=== PATIENT | female | born 1970 | race Two or more races ===

== ENCOUNTER 2024-11-03 06:39 | Day surgery (SDC) | payer OTHER, SELFPAY ==
[2024-11-01 16:23] VITALS: BMI 28.8
--- NOTE | 2024-11-02 09:08 | EKG_ITS ---
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
[2024-11-02 15:39] LABS: Basophils % (Auto) 0 % (0-2.5); Eosinophils # (Auto) 0.4 Thou/mm3 (0.0-0.5); Eosinophils % (Auto) 4 % (0-10); Hemoglobin 13.7 g/dL (12.0-16.0); Immature Granulocytes % (Auto) 0 % (0-0); Immature Granulocytes Auto 0.03 Thou/mm3 (0.00-0.00); Lymphocytes # (Auto) 3.3 Thou/mm3 (1.0-4.8); Lymphocytes % (Auto) 31 % (10-50); Mean Corpuscular HGB Conc 33.4 g/dl (31.0-37.0); Mean Corpuscular Hemoglobin 28.7 pg (25.0-35.0); Mean Corpuscular Volume 86 fL (80-100); Monocytes # (Auto) 0.8 Thou/mm3 (0.0-0.8); Monocytes % (Auto) 8 % (0-12); Neutrophils # (Auto) 5.9 Thou/mm3 (1.8-7.7); Neutrophils % (Auto) 57 % (37-80); Nucleated Red Blood Cell % 0 /100 WBC (0); Platelet Count 307 Thou/mm3 (140-440); RDW Standard Deviation 40.5 fL (36.4-46.3); Red Blood Count 4.78 Miln/mm3 (4.00-5.20); White Blood Count 10.4 Thou/mm3 (3.6-11.0)
[2024-11-02 15:46] LABS: Partial Thromboplastin Time 28.3 Seconds (22.0-36.0); Prothrombin Time 10.7 Seconds (9.0-12.2)
[2024-11-02 15:52] LABS: Anion Gap 7 (7-16); BUN/Creatinine Ratio 18 Ratio (12-20); Blood Urea Nitrogen 23 mg/dL (9-23); Calcium 10.1 mg/dL (8.3-10.6); Carbon Dioxide 29.9 mMol/L (20.0-31.0); Chloride 102 mMol/L (98-107); Creatinine (Component) 1.3 mg/dL (0.6-1.3); Estimated Creatinine Clearance 55.6 mL/min (>60); Glucose 199 mg/dL (74-106); Osmolality,Calculated 287 (275-295); Potassium 3.7 mMol/L (3.4-5.1); Sodium 139 mMol/L (136-145); eGFR 49 See Note
[2024-11-03] VITALS (11 sets, daily range): BP systolic 109–129; BP diastolic 66–80; PULSE 52–67; RESP 12–21; TEMP 36.5–36.6; O2SAT 92–95
[2024-11-03] MEDS: SODIUM CHLORIDE 0.9% 500 ML 300 ML 100 ML IV (08:35)
--- NOTE | 2024-11-03 09:10 | ESOP_ITS ---
RE: DERIC CHO : 1970 DATE OF OPERATION: 11/03/2024 PROCEDURE PERFORMED: 1. Diagnostic left heart cardiac catheterization, selective coronary angiogram, left ventricular angiogram, CPT 62454. 2. Ultrasound-guided access, right radial artery. 3. Conscious sedation 30 minute duration. DIAGNOSES: Coronary artery disease, abnormal stress test, angina. HISTORY AND INDICATIONS: The patient is a 54-year-old lady with history of hypertension, hypercholesterolemia, diabetes mellitus, strong family history of CAD. Mother having heart attack at early age, has had recurrent shortness of breath, chest tightness, palpitations. Cardiac workup showed evidence of inferior wall ischemia, reversible suspicious for significant CAD, hence coronary angiogram was recommended assess the patient is a candidate for intervention and revascularization. PROCEDURE IN DETAIL: The patient was brought to cardiac catheterization laboratory where she was given 2 mg of Versed and 75 mcg of fentanyl for sedation. Right radial approach was taken. Right radial artery was cannulated via micropuncture technique. A 6-Tuvaluan Glidesheath was introduced. Selective right and left coronary angiogram performed via TIG-4, 5-Tuvaluan diagnostic catheter and left heart catheterization and left ventricular angiogram performed by the same catheter. The patient tolerated the procedure well with no complications. TR band was applied. Hemostasis secured. Radial cocktail was also given consisting of nitroglycerin plus heparin 3000 units as well as verapamil 2.5 mg. Cardiac catheterization showed following findings. Hemodynamics: Left ventricular pressure 108/2, EDP 15, aortic pressure 117/70. No gradient across the aortic valve. Left ventricular angiogram showed normal left ventricular wall motion, ejection fraction 70%. Coronary angiogram showed following findings. Right coronary artery small and nondominant, gives off right ventricular branches . Left coronary system. Left main coronary artery are normal. Short and bifurcation to LAD, circumflex artery, very sharp left main. Left anterior descending artery showed mild plaque in the proximal segment, 20% narrowing, mid left anterior descending artery showed mild plaque again 20% narrowing. Hemodynamically significant obstructive CAD. Left circumflex artery is large and dominant, gives off obtuse marginal branch, posterolateral branches and posterior descending artery. Left circumflex artery and all the branches appeared normal. SUMMARY OF FINDINGS: 1. Hemodynamically insignificant nonobstructive coronary artery disease, evidence of mild to moderate plaque involving proximal and mid left anterior descending artery. 2. Dominant left circumflex artery with no significant stenosis. 3. Nondominant right coronary artery. 4. Normal left ventricular function. RECOMMENDATIONS: The patient was reassured about the absence of significant obstructive coronary artery disease. Recommended to continue medical management. Prognosis is excellent. DT: 08:28:44 TT: 09:08:00 Ref: [id number] - TID: [id number]
== END 2024-11-03 11:21 | disposition home or self-care (01) ==
PROVIDERS: PCP Physician Assistant Medical; Referring Provider Internal Medicine Cardiovascular Disease; Visit Provider Internal Medicine Cardiovascular Disease
PROC: (CPT 93458; principal; 2024-11-03 07:30)
DX: I25.119 Atherosclerotic heart disease of native coronary artery with unspecified angina pectoris (principal); E11.9 Type 2 diabetes mellitus without complications; E78.00 Pure hypercholesterolemia, unspecified; I10 Essential (primary) hypertension; Z82.49 Family history of ischemic heart disease and other diseases of the circulatory system; Z01.810 Encounter for preprocedural cardiovascular examination; Z86.69 Personal history of other diseases of the nervous system and sense organs
CPT/HCPCS: 93458; 36415; 80048; 85025; 85610; 85730; 93005; 99152; A4649; C1769; C1887; C1894; J0171; J0461; J1643; J2250; J2310; J2371; J3010; J3490; J7040; Q9967; J2305

== ENCOUNTER 2024-11-05 00:32 | Emergency (ER) | payer OTHER, SELFPAY ==
[2024-11-05 00:33] VITALS: BMI 29.1
--- NOTE | 2024-11-05 00:34 | EKG_ITS ---
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
[2024-11-05 01:21] VITALS: BP 135/84; PULSE 58; RESP 18; TEMP 36.8; O2SAT 95
--- NOTE | 2024-11-05 01:52 | PD.EDEXREM ---
ED Extremity Problem RME/HPI General Chief complaint: Extremity Problem,Nontraumatic Stated complaint: RIGHT SHOULDER PAIN S/P ANGIOGRAM YESTERDAY Time Seen by Provider: 11/05/24 01:44 Arrival date/time: 11/05/24 00:32 54F with history of HTN and DM presents to ED with R shoulder pain w/o fall/trauma. Patient denies CP and SOB. Patient did have a R-sided heart cath today by Dr. Arvizu. Patient states she often gets frozen shoulder and that this feels the same. Limitations: no limitations Related Data Home Medications ?Medication ?Instructions ?Recorded ?Confirmed Propranolol Hcl * (INDERAL *) 80 mg PO QDAY HEART #0 tabs 05/06/14 11/03/24 loratadine 10 mg tablet (Claritin) 20 mg PO QDAY PRN ALLERGY #0 tabs 07/26/14 11/03/24 aspirin 81 mg tablet,delayed 81 mg PO QDAY 10/22/19 11/03/24 release empagliflozin 25 mg tablet 25 mg PO QDAY 11/03/24 11/03/24 (Jardiance) hydrochlorothiazide 25 mg tablet 25 mg PO QAM 11/03/24 11/03/24 lisinopril 2.5 mg tablet 2.5 mg PO QDAY 11/03/24 11/03/24 rosuvastatin 5 mg tablet (Crestor) 5 mg PO QDAY 11/03/24 11/03/24 sitagliptin phosphate 50 1 tab PO BID 11/03/24 11/03/24 mg-metformin 1,000 mg tablet (Janumet) Held on 11/03/24. Instructions: Resume on 11/05/24. continue Friday11/05/24 Previous Rx's ?Medication ?Instructions ?Recorded ibuprofen 600 mg tablet 600 mg PO QID PRN pain #30 tabs 11/21/18 Allergies Allergy/AdvReac Type Severity Reaction Status Date / Time No Known Allergies Allergy Verified 11/05/24 00:33 Review of Systems Review of Systems Systems Reviewed: All systems reviewed, normal except as documented Constitutional Constitutional: Reports system reviewed and no additional complaints, except as documented, Denies fever(s) and Denies headache(s) ENT Ears, Nose, Mouth, and Throat: Denies disequilibrium and Denies headache(s) Cardiovascular Cardiovascular: Reports system reviewed and no additional complaints, except as documented, Denies chest pain and Denies dyspnea Respiratory Respiratory: Reports system reviewed and no additional complaints, except as documented, Denies cough and Denies dyspnea Gastrointestinal Gastrointestinal: Reports system reviewed and no additional complaints, except as documented, Denies abdominal pain, Denies nausea and Denies vomiting Musculoskeletal Musculoskeletal: Reports as per HPI and Reports arthralgias Neurologic Neurologic: Reports system reviewed and no additional complaints, except as documented, Denies confusion, Denies disequilibrium and Denies headache(s) Psychiatric Psychiatric: Denies confusion Past Medical History Past Medical History 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); Negative Neurological Disorders or Seizures CARDIAC: Positive Cardiac Disorders (palpitations), Hypercholesterolemia and Hypertension; Negative Congestive Heart Failure RESPIRATORY: Negative Chronic Obstructive Pulmonary Disease (COPD) GASTROINTESTINAL: Positive Gastrointestinal Disorders (constipation, x3 colonoscopy) and Hemorrhoids GENITOURINARY: Positive Kidney Stones; Negative Genitourinary Disorders or Renal Disease REPRODUCTIVE: Positive Previous Pregnancies MUSCULOSKELETAL: Positive Arthritis; Negative Musculoskeletal Disorders ENDOCRINE: Positive Endocrine Disorders and Diabetes Mellitus Type 2; Negative Diabetes Mellitus Type 1 HEMATOLOGIC: Negative Blood Disorders PSYCHO/SOCIAL: Positive Anxiety OTHER HISTORY: Positive Blood Transfusions; Negative Shingles, Falls, Blood Transfusion Reaction, Anesthesia Reactions or Cancer Family History FAMILY HISTORY: Positive Family Cardiac Disorders Surgical History SURGICAL: Positive Abdominal Surgery, Joint Replacement (ankle sx), Hysterectomy and Section (x3); Negative Cardiac Surgery or Nephrectomy Social History SMOKING STATUS: Never smoker SUBSTANCE USE: does not use ED Exam General Limitations: Present no limitations General appearance: Present alert and in no apparent distress Head Head exam: Present atraumatic Eye Eye exam: Present normal appearance, PERRL and EOMI ENT ENT exam: Present normal exam, normal oropharynx and mucous membranes moist Neck Neck exam: Present normal inspection, full ROM and trachea midline Chest Chest inspection: Present normal inspection and symmetric chest wall rise Respiratory Respiratory exam: Present normal lung sounds bilaterally Cardiovascular Cardiovascular exam: Present regular rate, normal rhythm and normal heart sounds Abdominal Exam Abdominal exam: Present soft and normal bowel sounds Extremities Exam Extremities exam: Present normal inspection and full ROM Back Exam Back exam: Present normal inspection and full ROM Neurological Exam Neurological exam: Present alert, oriented X3 and CN II-XII intact Psychiatric Psychiatric exam: Present normal affect and normal mood Skin Skin exam: Present warm, dry, intact and normal color Course Quality Measures none Orders Category Date Time Status EKG (ED ONLY) *Do not use* NOW Care 11/05/24 00:34 Completed EKG (ED Only) Stat Exams 11/05/24 00:34 Draft CBC Stat Lab 11/05/24 02:17 Completed CMP [Comprehensive Metabolic Panel] Stat Lab 11/05/24 02:17 Completed Troponin I Stat Lab 11/05/24 02:17 Completed HYDROcodone*/APAP 5/325 [Russell 5/325] Med 11/05/24 01:45 Discontinued 1 tab PO X1 ONE Vital Signs Vital signs: Vital Signs Temperature 98.3 F 11/05/24 01:21 Pulse Rate 58 L 11/05/24 01:21 Respiratory Rate 18 11/05/24 01:21 Blood Pressure 135/84 H 11/05/24 01:21 Pulse Oximetry (%) 95 11/05/24 01:21 Oxygen Delivery Method Room Air 11/05/24 01:21 O2 at 95% on RA and WNLs Extremity Problem MDM Narrative MDM Narrative:: 54F with history of HTN and DM presents to ED with R shoulder pain w/o fall/trauma. Patient denies CP and SOB. Patient did have a R-sided heart cath today by Dr. Arvizu. Patient states she often gets frozen shoulder and that this feels the same. Physical exam reveals no R shoulder tenderness. No gross RUE swelling. Pain is with ROM, which is limited. Clear lungs. RRR. Patient is afebrile, calm, and alert. EKG is sinus manuel at 58. Trop normal. Other labs unremarkable. Pain improved with meds. Patient data External records reviewed:: [facility] previous records Clinical information provided by:: patient Social determinants that could affect healthcare access:: none Patient has the following chronic illnesses:: none How is presenting disease/condition affected by chronic disease/condition?: no chronic disease Evaluation data The following diagnostics were reviewed and interpreted by me:: lab results and EKG tracing(s) Lab and/or radiology exams considered but not ordered:: ordered Interpretation Summary: above Medications / Prescriptions Medications or Prescriptions considered but not ordered:: ordered Medication administrations:: Medication Administration History Discontinued Medications Hydrocodone Bitart/Acetaminophen (Hydrocodone/Apap 5/325 Tablet) 1 tab PO X1 ONE Stop: 11/05/24 01:46 Last Admin: 11/05/24 02:19 Dose: 1 tab Documented By: SE above Consultations Consultation(s) initiated? (list below): No Diagnosis Extremity Problem Differential Diagnosis: herpes zoster, gout, cellulitis, superficial thrombophlebitis, deep venous thrombosis of upper extremity, lower extremity edema, deep vein thrombosis of lower extremity and other (DVT, adhesive capsulitis, ACS) Most likely diagnosis given after review of the tests above:: adhesive capsulitis Admission Indicated Admission indicated?: not indicated Admission Request Was there a request for admission?: No Disposition Plan Disposition Plan: Discharge Discharge Attestation Discharge Attestation: The patient and all family members were given an opportunity to ask questions and understood the discharge instructions. Discharge instructions specifically effects, indications for sooner follow up or return to the emergency department, and the expected course of current diagnosis. Patient condition: Stable Discharge Plan Plan Patient Disposition: HOME (Self Care) Disposition Comment: Stable Prescriptions/Referrals Prescriptions/Med Rec: No Action Propranolol Hcl * (INDERAL *) 80 MG tablet 80 mg PO QDAY Qty: 0 loratadine [Claritin] 10 MG tablet 20 mg PO QDAY PRN (Reason: ALLERGY) Qty: 0 ibuprofen 600 mg tablet 600 mg PO QID PRN (Reason: pain) Qty: 30 0RF aspirin 81 mg Tablet,Delayed Release (Dr/Ec) 81 mg PO QDAY rosuvastatin [Crestor] 5 mg tablet 5 mg PO QDAY Janumet 50-1,000 mg tablet 1 tab PO BID hydrochlorothiazide 25 mg tablet 25 mg PO QAM lisinopril 2.5 mg tablet 2.5 mg PO QDAY Jardiance 25 mg tablet 25 mg PO QDAY Referrals: Angelic Kim PA-C [Primary Care Provider] - In 1 week Problem List Clinical Impression: Adhesive capsulitis Patient/Caregiver Discharge Instructions Education Materials: ED Capsulitis Adhesive Shoulder Additional Instructions: Please follow-up with PCP within 24-48 hours and return immediately if symptoms worsen. If problem persists, recommend outpatient PT and/or MRI follow-up. In the meantime, rest, use ice/heat, and/or compression. Print Language: Maori Stand Alone Forms: Patient Portal Info Letter PA/GUILLOTINE TRIMMER Supervising Physician ROCÍO/NEYMAR Supervising Physician: Dr. Erickson
[2024-11-05] MEDS: HYDROcodone/APAP 5/325 TABLET 1 TAB PO (02:19)
[2024-11-05 02:29] LABS: Basophils # (Auto) 0.1 Thou/mm3 (0.0-0.2); Basophils % (Auto) 1 % (0-2.5); Eosinophils # (Auto) 0.5 Thou/mm3 (0.0-0.5); Eosinophils % (Auto) 4 % (0-10); Hematocrit 40.6 % (36.0-46.0); Hemoglobin 13.6 g/dL (12.0-16.0); Immature Granulocytes % (Auto) 0 % (0-0); Immature Granulocytes Auto 0.05 Thou/mm3 (0.00-0.00); Lymphocytes # (Auto) 3.2 Thou/mm3 (1.0-4.8); Lymphocytes % (Auto) 26 % (10-50); Mean Corpuscular HGB Conc 33.5 g/dl (31.0-37.0); Mean Corpuscular Hemoglobin 28.8 pg (25.0-35.0); Mean Corpuscular Volume 86 fL (80-100); Monocytes # (Auto) 1.2 Thou/mm3 (0.0-0.8); Monocytes % (Auto) 10 % (0-12); Neutrophils # (Auto) 7.4 Thou/mm3 (1.8-7.7); Neutrophils % (Auto) 60 % (37-80); Nucleated Red Blood Cell % 0 /100 WBC (0); Platelet Count 269 Thou/mm3 (140-440); RDW Standard Deviation 40.2 fL (36.4-46.3); Red Blood Count 4.73 Miln/mm3 (4.00-5.20); White Blood Count 12.3 Thou/mm3 (3.6-11.0)
[2024-11-05 02:53] LABS: Alanine Aminotransferase 10 U/L (10-49); Albumin, Serum 4.4 gm/dL (3.5-5.0); Albumin/Globulin Ratio 1.4 (1.2-2.2); Alkaline Phosphatase 76 U/L (46-116); Anion Gap 10 (7-16); Aspartate Amino Transferase 10 U/L (0-34); BUN/Creatinine Ratio 18 Ratio (12-20); Bilirubin,Total 0.3 mg/dL (0.3-1.2); Blood Urea Nitrogen 18 mg/dL (9-23); Calcium 9.4 mg/dL (8.3-10.6); Calcium (Corrected) 9.4 mg/dL (8.5-10.1); Carbon Dioxide 28.2 mMol/L (20.0-31.0); Chloride 102 mMol/L (98-107); Estimated Creatinine Clearance 72.6 mL/min (>60); Globulin 3.2 gm/dL (2.3-3.5); Glucose 202 mg/dL (74-106); Osmolality,Calculated 287 (275-295); Potassium 3.5 mMol/L (3.4-5.1); Sodium 140 mMol/L (136-145); Total Protein 7.6 gm/dL (5.7-8.2); Troponin I < 0.020 ng/mL (0.0-0.045); eGFR > 60 See Note
== END 2024-11-05 03:29 | disposition home or self-care (01) ==
PROVIDERS: Physician Assistant; Emergency Provider Emergency Medicine; PCP Physician Assistant Medical
DX: M75.01 Adhesive capsulitis of right shoulder (principal); I10 Essential (primary) hypertension; E78.00 Pure hypercholesterolemia, unspecified
CPT/HCPCS: 36415; 80053; 84484; 85025; 93005; 99283; A9270

== ENCOUNTER → 2025-02-09 | Outpatient (CLI) | payer OTHER, SELFPAY ==
--- NOTE | 2025-02-09 13:20 | XR_ITS ---
Examination: Bone densitometry Date and time of exam:February 09, 2025 1358 hours INDICATIONS: Hysterectomy age 37 vitamin D 9 months, diabetic Technique: Lumbar spine and hip total bone mineralization values of an calculated. Peak reference and age match control results have been displayed. Findings: Lumbar spine total bone mineralization is1.242 gm/cm2. This is 1.8 standard deviations above peak reference. This is 2.7 standard deviations above age-matched controls. Hip total bone mineralization is 1.392 gm/cm2 This is 3.2 standard deviations above peak reference. This is 3.9 standard deviations above age-matched controls Impression: There is normal mineralization based on lumbar spine measurements. There is normal mineralization based on hip measurements
== END | disposition home or self-care (01) ==
LOC: CDIM 13:33
PROVIDERS: PCP Physician Assistant Medical; Referring Provider Physician Assistant Medical; Visit Provider Physician Assistant Medical
DX: M85.88 Other specified disorders of bone density and structure, other site (principal)
CPT/HCPCS: 77080

== ENCOUNTER 2025-05-18 02:35 | Inpatient (IN) | payer OTHER, SELFPAY ==
[2025-05-18] VITALS (10 sets, daily range): BP systolic 121–155; BP diastolic 71–96; PULSE 59–99; RESP 14–92; TEMP 36.5–37; O2SAT 92–97; BMI 29.6
--- NOTE | 2025-05-18 02:48 | PD.EDRME ---
Rapid Medical Screening Exam RME Arrival date/time: 05/18/25 02:35 54F with history of HTN, DM, hysterectomy, and cholecystectomy presents to ED with 2 days of ab pain and N/V. Patient recently switched from Ozempic to Mounjaro. Chief Complaint: Abdominal Pain Time Seen by Provider: 05/18/25 03:02 Vital signs: Vital Signs Temperature 98.1 F 05/18/25 02:39 Pulse Rate 71 05/18/25 02:39 Respiratory Rate 19 05/18/25 02:39 Blood Pressure 152/79 H 05/18/25 02:39 Pulse Oximetry (%) 97 05/18/25 02:39 Oxygen Delivery Method Room Air 05/18/25 02:39 MD Attestation MD Attestation I was available for support/supervision of advanced practiced provider responsible for the care of this patient. I was not directly involved in the care of the patient, nor did I examine the patient.? Lacie Segura MD
--- NOTE | 2025-05-18 03:04 | PD.EDABDPN ---
ED Abdominal Pain RME/HPI General Chief Complaint: Abdominal Pain Stated complaint: ABD PAIN Time seen by provider: 05/18/25 03:02 Arrival date/time: 05/18/25 02:35 RME / HPI RME / HPI narrative: 05/18/25 02:35 54F with history of HTN, DM, hysterectomy, and cholecystectomy presents to ED with 2 days of ab pain and N/V. Patient recently switched from Ozempic to Mounjaro. Dr. Flores?s Main ED Evaluation: 54yo female with a history of DM, HTN presents to the ED for a chief complaint of generalized abdominal pain for the last 2 days. Patient reports associated nausea. She has been unable to drink water due to feeling full of gas . Patient denies any vomiting or any other associated symptoms. Patient stopped taking Ozempic 1 year ago and started Mounjaro 1 week ago. She is on Jardiance and Metformin. PSH includes cholecystectomy and hysterectomy. NKA. Related Data Home Medications ?Medication ?Instructions ?Recorded ?Confirmed Propranolol Hcl * (INDERAL *) 80 mg PO QDAY HEART #0 tabs 05/06/14 11/03/24 loratadine 10 mg tablet (Claritin) 20 mg PO QDAY PRN ALLERGY #0 tabs 07/26/14 11/03/24 aspirin 81 mg tablet,delayed 81 mg PO QDAY 10/22/19 11/03/24 release empagliflozin 25 mg tablet 25 mg PO QDAY 11/03/24 11/03/24 (Jardiance) hydrochlorothiazide 25 mg tablet 25 mg PO QAM 11/03/24 11/03/24 lisinopril 2.5 mg tablet 2.5 mg PO QDAY 11/03/24 11/03/24 rosuvastatin 5 mg tablet (Crestor) 5 mg PO QDAY 11/03/24 11/03/24 sitagliptin phosphate 50 1 tab PO BID 11/03/24 11/03/24 mg-metformin 1,000 mg tablet (Janumet) Held on 11/03/24. Instructions: Resume on 11/05/24. 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); Negative Neurological Disorders or Seizures CARDIAC: Positive Cardiac Disorders (palpitations), Hypercholesterolemia and Hypertension; Negative Congestive Heart Failure RESPIRATORY: Negative Chronic Obstructive Pulmonary Disease (COPD) GASTROINTESTINAL: Positive Gastrointestinal Disorders (constipation, x3 colonoscopy) and Hemorrhoids GENITOURINARY: Positive Kidney Stones; Negative Genitourinary Disorders or Renal Disease REPRODUCTIVE: Positive Previous Pregnancies MUSCULOSKELETAL: Positive Arthritis; Negative Musculoskeletal Disorders ENDOCRINE: Positive Endocrine Disorders and Diabetes Mellitus Type 2; Negative Diabetes Mellitus Type 1 HEMATOLOGIC: Negative Blood Disorders PSYCHO/SOCIAL: Positive Anxiety OTHER HISTORY: Positive Blood Transfusions; Negative Shingles, Falls, Blood Transfusion Reaction, Anesthesia Reactions or Cancer Family History FAMILY HISTORY: Positive Family Cardiac Disorders Surgical History SURGICAL: Positive Abdominal Surgery, Joint Replacement (ankle sx), Hysterectomy and Section (x3); Negative Cardiac Surgery or Nephrectomy Social History SMOKING STATUS: Never smoker SUBSTANCE USE: does not use ED Exam Narrative Physical exam: Generally patient is alert oriented x 3 in mild to moderate distress secondary to pain, heart regular rate and rhythm, lungs clear to auscultation equal bilaterally, abdomen is distended and tympanic and diffusely tender without rebound, extremities show no edema, skin is warm pale and dry, neurologic exam shows Kumar Coma Scale of 15. Course Quality Measures none Orders Category Date Time Status CT Screening NOW Care 05/18/25 03:08 Active IV [Insert IV] NOW Care 05/18/25 03:[address] abdomen pelvis w con Stat Exams 05/18/25 03:08 Taken Amylase Stat Lab 05/18/25 02:57 Completed CBC Stat Lab 05/18/25 02:57 Completed CMP [Comprehensive Metabolic Panel] Stat Lab 05/18/25 02:57 Completed Urinalysis, C/S if Indicated Stat Lab 05/18/25 03:23 Completed Metoclopramide Inj [Reglan Inj] Med 05/18/25 02:48 Discontinued 10 mg IM X1 ONE Metoclopramide Inj [Reglan Inj] Med 05/18/25 03:24 Discontinued 10 mg IVP X1 ONE Morphine* Inj Med 05/18/25 03:08 Discontinued 4 mg IVP X1 ONE Morphine* Inj Med 05/18/25 04:29 Discontinued 4 mg IVP X1 ONE Sodium Chloride 0.9% 1000 ml [Ns] 1,000 ml Med 05/18/25 03:24 Discontinued IV 999 mls/hr Vital Signs Vital signs: Vital Signs Temperature 98.1 F 05/18/25 02:39 Pulse Rate 71 05/18/25 02:39 Respiratory Rate 19 05/18/25 02:39 Blood Pressure 152/79 H 05/18/25 02:39 Pulse Oximetry (%) 97 05/18/25 02:39 Oxygen Delivery Method Room Air 05/18/25 02:39 Abdominal Pain MDM MDM Narrative MDM Narrative:: Scribe Attestation: 05/18/25 - Nicole Berger, am scribing for and in the presence of Dr. Flores. I interpreted all labs. CT scan done of the abdomen and pelvis with IV contrast is pending reading by radiologist however my reading looks to be a possible ileus versus bowel obstruction. Patient does have a history of laparoscopic cholecystectomy and hysterectomy in the past. Patient is also on Mounjaro which can lead to an ileus and obstruction. Case will be signed out to Dr. Segura pending reading of the CT scan by radiology. Patient data External records reviewed:: [facility] previous records (Per chart review, patient was seen here on 11/05/24 for adhesive capsulitis.) Clinical information provided by:: patient Social determinants that could affect healthcare access:: none Patient has the following chronic illnesses:: DM, HTN, HLD How is presenting disease/condition affected by chronic disease/condition?: uneffected by Evaluation data The following diagnostics were reviewed and interpreted by me:: lab results and radiology exam(s) Lab and/or radiology exams considered but not ordered:: none Interpretation Summary: See MDM. Medications / Prescriptions Medications or Prescriptions considered but not ordered:: none Medication administrations:: Medication Administration History Discontinued Medications Sodium Chloride (Ns) 1,000 mls @ 999 mls/hr IV .Q1H1M ONE Stop: 05/18/25 04:24 Last Infusion: 05/18/25 04:39 Dose: Infused Documented By: Admin: 05/18/25 03:38 Dose: 999 mls/hr Documented By: ALEJANDRO Metoclopramide HCl (Metoclopramide Inj 5 Mg/Ml Vial 2 Ml) 10 mg IM X1 ONE; Protocol Stop: 05/18/25 02:49 Last Admin: 05/18/25 03:30 Dose: Not Given Documented By: ALEJANDRO Non-Admin Reason: Discontinued Metoclopramide HCl (Metoclopramide Inj 5 Mg/Ml Vial 2 Ml) 10 mg IVP X1 ONE; Protocol Stop: 05/18/25 03:25 Last Admin: 05/18/25 03:38 Dose: 10 mg Documented By: ALEJANDRO Morphine Sulfate (Morphine Sulf Inj 4 Mg/Ml Vial) 4 mg IVP X1 ONE Stop: 05/18/25 03:09 Last Admin: 05/18/25 03:18 Dose: 4 mg Documented By: WO Morphine Sulfate (Morphine Sulf Inj 4 Mg/Ml Vial) 4 mg IVP X1 ONE Stop: 05/18/25 04:30 Last Admin: 05/18/25 04:38 Dose: 4 mg Documented By: ALEJANDRO see above Consultations Consultation(s) initiated? (list below): No Diagnosis Differential diagnosis abdominal pain: other (See MDM) Most likely diagnosis given after review of the tests above:: see clinical impression below Admission Indicated Admission indicated?: not indicated Admission Request Was there a request for admission?: No Disposition Plan Disposition Plan: other (specify) (Signed out to Dr. Segura at 6 AM.) Discharge Plan Prescriptions/Referrals Prescriptions/Med Rec: No Action Propranolol Hcl * (INDERAL *) 80 MG tablet 80 mg PO QDAY Qty: 0 loratadine [Claritin] 10 MG tablet 20 mg PO QDAY PRN (Reason: ALLERGY) Qty: 0 ibuprofen 600 mg tablet 600 mg PO QID PRN (Reason: pain) Qty: 30 0RF aspirin 81 mg Tablet,Delayed Release (Dr/Ec) 81 mg PO QDAY rosuvastatin [Crestor] 5 mg tablet 5 mg PO QDAY Janumet 50-1,000 mg tablet 1 tab PO BID hydrochlorothiazide 25 mg tablet 25 mg PO QAM lisinopril 2.5 mg tablet 2.5 mg PO QDAY Jardiance 25 mg tablet 25 mg PO QDAY Problem List Clinical Impression: Abdominal pain Patient/Caregiver Discharge Instructions Print Language: Tajik
--- NOTE | 2025-05-18 03:08 | XR_ITS ---
Examination: CT abdomen with intravenous contrast CT pelvis with intravenous contrast 2-D coronal reconstructions 2-D sagittal reconstructions Date and time of exam:May 18, 2025, 0414 hrs. Indications: Abdominal pain onset today. CTDI: vol (mGy) 20.41 DLP: (mGycm) 891 Technique: Multiple axial sections of the abdomen and pelvis have been obtained. 64 slice high-resolution scanner used. 3 mm axial sections have been obtained, post intravenous injection 60 cc [id number]-370 2-D sagittal, coronal reconstructions obtained. Low dose protocols were performed. One or more of the following dose reduction techniques were used; automated exposure control, adjustment of the mA and/or KV according to patient size, use of iterative reconstruction technique. Findings: No focal liver lesion Absent gallbladder No extrahepatic biliary tract dilatation Spleen is not enlarged. No pancreatic or adrenal mass. Moderate renal scar formation No renal or ureteral calculi, no hydronephrosis Aorta normal size No pericecal inflammatory change, normal appendix sagittal images 176 through 160 Multiple fluid distended small bowel loops in the lower abdomen, for instance axial image 152 and fluid adjacent to lower small bowel loops on the left side image 169 as well as in the pelvis axial image 197 Urinary bladder is intact Absent uterus No pelvic mass Diffuse [id number] lumbar disc narrowing Impression: Normal appendix Suspicious for early small bowel obstruction Fluid adjacent to small bowel loops in the lower abdomen pelvis, ischemic bowel would be included in the differential, recommend surgical consultation, recommend Gastrografin small bowel series follow-up
[2025-05-18] MEDS: MORPHINE SULF INJ 4 MG/ML VIAL IVP ×2 (03:18→04:38)
[2025-05-18 03:24] LABS: Basophils # (Auto) 0.1 Thou/mm3 (0.0-0.2); Basophils % (Auto) 0 % (0-2.5); Eosinophils # (Auto) 0.3 Thou/mm3 (0.0-0.5); Eosinophils % (Auto) 2 % (0-10); Hematocrit 44.9 % (36.0-46.0); Hemoglobin 14.8 g/dL (12.0-16.0); Immature Granulocytes Auto 0.03 Thou/mm3 (0.00-0.00); Lymphocytes # (Auto) 2.4 Thou/mm3 (1.0-4.8); Lymphocytes % (Auto) 17 % (10-50); Mean Corpuscular HGB Conc 33.0 g/dl (31.0-37.0); Mean Corpuscular Hemoglobin 28.5 pg (25.0-35.0); Mean Corpuscular Volume 86 fL (80-100); Monocytes # (Auto) 1.1 Thou/mm3 (0.0-0.8); Monocytes % (Auto) 8 % (0-12); Neutrophils # (Auto) 10.5 Thou/mm3 (1.8-7.7); Neutrophils % (Auto) 73 % (37-80); Nucleated Red Blood Cell # 0.00 Thou/mm3 (0.00-0.00); Nucleated Red Blood Cell % 0 /100 WBC (0); Platelet Count 256 Thou/mm3 (140-440); RDW Standard Deviation 41.4 fL (36.4-46.3); Red Blood Count 5.20 Miln/mm3 (4.00-5.20); White Blood Count 14.4 Thou/mm3 (3.6-11.0)
[2025-05-18 03:32] LABS: Collection Type, Urine Clean Catch
[2025-05-18] MEDS: SODIUM CHLORIDE 0.9% 1000 ML 1,000 ML 999 ML IV (03:38)
[2025-05-18] MEDS: METOCLOPRAMIDE INJ 5 MG/ML VIAL 2 ML 10 MG IVP (03:38)
[2025-05-18 03:47] LABS: Alanine Aminotransferase 12 U/L (10-49); Albumin, Serum 4.5 gm/dL (3.5-5.0); Albumin/Globulin Ratio 1.5 (1.2-2.2); Alkaline Phosphatase 78 U/L (46-116); Amylase 38 U/L (30-118); Anion Gap 9 (7-16); Aspartate Amino Transferase 13 U/L (0-34); BUN/Creatinine Ratio 10 Ratio (12-20); Bilirubin,Total 0.5 mg/dL (0.3-1.2); Blood Urea Nitrogen 10 mg/dL (9-23); Calcium 9.9 mg/dL (8.3-10.6); Calcium (Corrected) 9.9 mg/dL (8.5-10.1); Carbon Dioxide 30.6 mMol/L (20.0-31.0); Chloride 102 mMol/L (98-107); Creatinine (Component) 1.0 mg/dL (0.6-1.3); Estimated Creatinine Clearance 73.2 mL/min (>60); Globulin 3.1 gm/dL (2.3-3.5); Glucose 254 mg/dL (74-106); Osmolality,Calculated 291 (275-295); Potassium 3.5 mMol/L (3.4-5.1); Sodium 142 mMol/L (136-145); Total Protein 7.6 gm/dL (5.7-8.2); eGFR > 60 See Note
[2025-05-18 03:50] LABS: Bacteria,Urine Rare; Bilirubin,Urine Negative (Negative); Blood,Urine Negative (Negative); Clarity,Urine Clear (Clear/Hazy); Color,Urine Lt-Yellow (Lt Yel-Yel); Culture Indicated,Urine Not Indicated; Glucose, Urine 4+ (Negative); Ketones,Urine Negative (Negative); Leukocyte Esterase,Urine Negative (Negative); Nitrite,Urine Negative (Negative); PH,Urine 6.0 (5.0-7.0); Protein,Urine Trace (Neg - Trace); RBC,Urine 2 /hpf (0-3); Specific Gravity,Urine 1.043 (1.001-1.035); Squamous Epithelial Cell,Urine 4 /hpf (0-5); Urobilinogen,Urine Negative mg/dL (0.0-1.0); WBC,Urine 3 /hpf (0-5)
--- NOTE | 2025-05-18 06:49 | XR_ITS ---
Examination: Small bowel series AP abdomen supine 3 views Date and time: May 18, 2025 0846 hours INDICATIONS: Abdominal pain today, small bowel obstruction pattern on CT abdomen pelvis study 05/18/2025 0414 hours TECHNIQUE AND FINDINGS: Patient received 120 cc Gastrografin Immediate 30 minute and 1 hour films obtained Contrast distended small bowel loops IMPRESSION: Contrast distended small bowel loops Recommend follow-up abdomen films 12 noon, 2:00 PM
--- NOTE | 2025-05-18 06:49 | EDNOTE_ITS ---
Emergency Room Addendum Addendum Narrative: Patient is a 54-year-old female into the emergency department concerns for abdominal pain. Prior provider evaluated patient. Ordered labs CT abdomen pelvis. Labs with leukocytosis 14.4, no left shift. No other acute hematologic abnormality. No significant acute electrolyte abnormality. Patient without transaminitis. Urinalysis without evidence of infection. CT abdomen pelvis on my read with findings with possible bowel obstruction. Ordered XR small bowel f ollow-through. 9:25a CT read came back read as possible early bowel obstruction as well as free fluid around the small bowel concerning for possible bowel ischemia. Given these findings, and concern for bowel ischemia I did not place the NG tube yet, until evaluated by surgeon. I did order blood cultures antibiotics. I consulted on-call surgeon Dr. Diaz, [facility]. Discussed case with hospitalist service. Will admit. 9:45a Dr Diaz evaluated patient at bedside, recommends Gastrografin follow- through study as well as an NG tube. Will follow with the patient as an inpatient. I spent 45 minutes of critical care time with this patient not including reportable procedures. There was an acute impairment of an organ system with a high probability of imminent or life threatening deterioration in the patient's condition. Interventions and changes required in the course of therapy are located in the chart. Time involved was spent in direct patient care, reviewing ancillary data, old records, consulting with decision makers, EMS, other doctors, giving orders and documenting.
[2025-05-18] MEDS: HYDROmorphone INJ 2 MG/ML VIAL 0.5 MG IVP ×3 (07:21→12:15)
--- NOTE | 2025-05-18 07:24 | PC.NURSE ---
Report received from pm nurse, patient to er with c/o mid abd. pain since 7pm yesterday with nausea, no vomiting or diarrhea, skin warm dry and pink, patient awaiting small bowel series, call light within reach, pain medication given per md order.
--- NOTE | 2025-05-18 10:00 | PC.NURSE ---
Ok to hold on NG tube until after abd. series study, per Dr. Segura
[2025-05-18] MEDS: PIPER/TAZO INJ 4.5 GM in SODIUM CHLORIDE 0.9% (POP) 100 ML IV (10:14)
--- NOTE | 2025-05-18 10:19 | PC.NURSE ---
Patient c/o 02/01 mid abd. pain, requesting more pain medication, Dr. Segura made aware.
[2025-05-18 10:46] LABS: Base Excess, Venous 2 (-3-3); Lactate (Lactic Acid) 1.6 mMol/L (0.4-2.0); O2 Saturation, Venous 80 % (96-97); PCO2, Venous 42 mmHg (36-56); PO2, Venous 41 mmHg (15-58); pH, Venous 7.42 (7.33-7.66)
[2025-05-18 11:05] LABS: INR 1.0 (0.9-1.3); Prothrombin Time 10.6 Seconds (9.0-12.2)
--- NOTE | 2025-05-18 11:13 | PC.NURSE ---
Patient lying in gurney sleeping, arouses and responds normally. Patient states pain 0/10 at this time, call light within reach.
[2025-05-18] MEDS: ONDANSETRON INJ 2 MG/ML INJ 2 ML 4 MG IV (12:14)
--- NOTE | 2025-05-18 12:39 | ESHP_ITS ---
<Statement entered by Lore Raman MD - 05/18/25 18:23> Patient is 54 yr male with PMH of HTN, insulin dependent diabetes, HLD , 3 sections, and hernia repair presenting with abdominal pain that started yesterday evening. Pain is severe 10/10 associated with nausea but no vomiting. Her LBM was yesterday, denies any blood in the stool. Pain worsened after having BM. CT A/P Suspicious for early small bowel obstruction. Patient was started on gastrograffin series before getting NG tube in ED. XR abdomen showed Contrast in small bowel loops but contrast also present in the colon. Continue with gastrograffin series, IV pain medication, NG tube if patient has emesis. Continue SSI and glucose checks q6hr. The patient's management plan was discussed with my attending physician Dr. Zepeda. Lore Raman, PGY-2 Documentation for date of: 05/18/25 HPI History of Present Illness Chief complaint: Nausea and abdominal pain History of present illness: Ms. Mills is a 54-year-old woman with a history of hypertension, diabetes on insulin, HLD, 3 sections, and hernia repair who presented with nausea and diffuse abdominal pain. she states that the pain came on abruptly at 7 PM, she states that she had a bowel movement at about 2030, and thought that her symptoms would resolve, but they persisted. ROS denies, fevers, vomiting, endorses, abdominal pain, generalized weakness, chills, nausea Surgical hx: abdominal hernia repair and 3 c sections. Social history: social etoh drinking, nonsmoker, Meds: Aspirin, tremfya pen (guselkumab), HCTZ 25, Insulin degludec 32 units qhs, jardiance 25 po qd, rosuvastatin 5 mg qd. ED course VSS Afebrile, BP 150s/90s. satting well on RA. Labs pertinent for WBC 14, lactate 1.6, UA with 4+ glucose, Imaging notable for - CTAP with c/f early sbo - KUB with contrast distended small bowel loops Tx - Pain control with dilaudid - nausea control with metaclopramide and zofran - gastrogaffin small bowel series - zosyn x1 NG tube was not placed. Review of Systems Review of Systems Narrative Review of Systems: as per hpi Past Medical History Surgical History SURGICAL: Positive Abdominal Surgery and Section Exam Vital Signs Temp Pulse Resp BP Pulse Ox O2 Del Method O2 Flow Rate 98.6 F 99 16 126/96 H 95 Room Air 3 05/18/25 12:13 05/18/25 12:13 05/18/25 12:13 05/18/25 12:13 05/18/25 12:13 05/18/25 12:13 05/18/25 10:09 Narrative Exam GENERAL: no moderate distress 2/2 abdominal pain , AAO x3, laying on her Right side, HEENT: Head AT/ NC. Mucous membranes DRY . PERRL. NECK: Supple, no lymphadenopathy, no carotid bruits. CARDIOVASCULAR: RRR. Normal S1/S2, No m/r/g. No pitting edema of bilateral LEs. RESPIRATORY: CTAB. No wheezing, rhonchi, crackles. GASTROINTESTINAL: Abdomen soft, obese, diffusely tender with light palpation no palpable masses. Bowel sounds hypoactive MUSCULOSKELETAL:? No cyanosis or edema, no visible joint swelling. NEUROLOGICAL: CN II-XII grossly intact. No focal deficits. Sensation intact, symmetric. PSYCHIATRIC: Awake and alert, not agitated, normal mood and affect. SKIN: No obvious rashes, no jaundice, normal turgor. Results: Labs 05/19/25 04:38 05/19/25 04:38 Labs: Short CBC 05/18/25 Range/Units 02:57 WBC 14.4 H (3.6-11.0) Thou/mm3 Hgb 14.8 (12.0-16.0) g/dL Hct 44.9 (36.0-46.0) % Plt Count 256 (140-440) Thou/mm3 BMP 05/18/25 02:57 Sodium 142 Potassium 3.5 Chloride 102 Carbon Dioxide 30.6 BUN 10 Creatinine 1.0 Glucose 254 H Calcium 9.9 Liver Function 05/18/25 Range/Units 02:57 Total Bilirubin 0.5 (0.3-1.2) mg/dL AST 13 (0-34) U/L ALT 12 (10-49) U/L Alkaline Phosphatase 78 (46-116) U/L Albumin 4.5 (3.5-5.0) gm/dL Urine 05/18/25 Range/Units 03:23 Urine Color Lt-Yellow (Lt Yel-Yel) Urine Clarity Clear (Clear/Hazy) Urine pH 6.0 (5.0-7.0) Ur Specific [place] 1.043 H (1.001-1.035) Urine Protein Trace (Neg - Trace) Urine Glucose (UA) 4+ A (Negative) ABG Interpretation ABG results: 05/18/25 10:33 VBG pH 7.42 VBG pCO2 42 VBG pO2 41 VBG Base Excess 2 Quality Measures Quality Measures VTE prophylaxis Medications Home Medications and Allergies Home Medications ?Medication ?Instructions ?Recorded ?Confirmed ?Type Propranolol Hcl * (INDERAL *) 80 mg PO QDAY HEART #0 t abs 05/06/14 05/18/25 History aspirin 81 mg tablet,delayed 81 mg PO QDAY 10/22/19 History release empagliflozin 25 mg tablet 25 mg PO QDAY 11/03/2404/26 History (Jardiance) hydrochlorothiazide 25 mg tablet 25 mg PO QAM 11/03/24 05/18/25 History rosuvastatin 5 mg tablet (Crestor) 5 mg PO QDAY 05/18/25 History guselkumab 100 mg/mL subcutaneous 100 mg subcut .q8wks 05/18/25 05/18/25 History pen injector (Tremfya Pen) insulin degludec 200 unit/mL (3 32 unit subcut QPM 05/18/25 History mL) subcutaneous pen (Tresiba FlexTouch U-200 insulin) Allergies Allergy/AdvReac Type Severity Reaction Status Date / Time No Known Allergies Allergy Verified 05/18/25 02:36 Visit Medications Discontinued Medications Hydromorphone HCl (Hydromorphone Inj 2 Mg/Ml Vial) 0.5 mg IVP X1 ONE Stop: 05/18/25 07:15 Last Admin: 05/18/25 07:21 Dose: 0.5 mg Hydromorphone HCl (Hydromorphone Inj 2 Mg/Ml Vial) 1 mg IVP X1 ONE Stop: 05/18/25 10:20 Hydromorphone HCl (Hydromorphone Inj 2 Mg/Ml Vial) 0.5 mg IVP X1 ONE Stop: 05/18/25 10:21 Last Admin: 05/18/25 10:32 Dose: 0.5 mg Hydromorphone HCl (Hydromorphone Inj 2 Mg/Ml Vial) 0.5 mg IVP X1 ONE Stop: 05/18/25 11:53 Last Admin: 05/18/25 12:15 Dose: 0.5 mg Sodium Chloride (Ns) 1,000 mls @ 999 mls/hr IV .Q1H1M ONE Stop: 05/18/25 04:24 Last Infusion: 05/18/25 04:39 Dose: Infused Piperacillin Sod/Tazobactam (Sod 4.5 gm/ Sodium Chloride) 100 mls @ 200 mls/hr IV STAT STA; Protocol Stop: 05/18/25 09:46 Last Infusion: 05/18/25 10:50 Dose: Infused Metoclopramide HCl (Metoclopramide Inj 5 Mg/Ml Vial 2 Ml) 10 mg IM X1 ONE; Protocol Stop: 05/18/25 02:49 Last Admin: 05/18/25 03:30 Dose: Not Given Metoclopramide HCl (Metoclopramide Inj 5 Mg/Ml Vial 2 Ml) 10 mg IVP X1 ONE; Protocol Stop: 05/18/25 03:25 Last Admin: 05/18/25 03:38 Dose: 10 mg Morphine Sulfate (Morphine Sulf Inj 4 Mg/Ml Vial) 4 mg IVP X1 ONE Stop: 05/18/25 03:09 Last Admin: 05/18/25 03:18 Dose: 4 mg Morphine Sulfate (Morphine Sulf Inj 4 Mg/Ml Vial) 4 mg IVP X1 ONE Stop: 05/18/25 04:30 Last Admin: 05/18/25 04:38 Dose: 4 mg Ondansetron HCl (Ondansetron Inj 2 Mg/Ml Inj 2 Ml) 4 mg IV X1 ONE; Protocol Stop: 05/18/25 12:01 Last Admin: 05/18/25 12:14 Dose: 4 mg Assessment & Plan Plan Ms. Mills is a 54-year-old woman with a history of hypertension, diabetes on insulin, HLD, 3 sections, and hernia repair who presented with nausea and diffuse abdominal pain found to have small bowel obstruction, likely 2/2 adhesions from prior abdominal surgeries, undergoing small bowel series SBO 2/2 intrabdominal adhesions from prior surgeries pt reports having had 3 c sections and a prior hernia repair, all risk factors for adhesions and subsequent SBO. CTAP with c/f early SBO KUB with contrast shows contrast dilated loops of bowel. PLAN: NPO Place ng tube if abdomen distended and c/f emesis Undergoing Small bowel series with gastrogaffin Consider Surgery consult if SBO does not resolve with gastrogaffin series Pain: Dilaudid 1mg IV q4hr prn, IV APAP q6hr prn Nausea: Zofran PRN HTN Hx anginal pain s/p cardiac cath 11/03/[address] Arvizu with no occlusions noted PLAN BP well controlled while inpatient SBP 120s hold home HCTZ 25 mg qam hold home ASA 81 IDT2DM home regimen: degludec 32 U qhs, jardiance 25 mg qd , a1c pending PLAN NPO ISS q6hr Blood glucose checks q6hr HLD PLAN hold home rosouvostatin 5 mg iso NPO Psoriatic arthritis home tremfya sub q 100 mg q8 weeks Dispo: undergoing small bowel series with gastrogaffin and supportive treatment Diet: NPO Bowel Reg: gastrogaffin series VTE ppx: lovenox 40 GI ppx: not indicated Code status: FULL Plan discussed with Dr. Raman, Dr Woody, and Dr. Katelyn Rodriguez MD PGY1 Attending Provider Attestation/Addendum 54-year-old female with multiple comorbidities including hypertension, hyperlipidemia, type 2 diabetes mellitus and past surgical history of hernia repair and presented with abdominal pain found to have small bowel obstruction plan to continue NG tube to low wall suction and Gastrografin pending. I reviewed above note and agree with findings and plans. I have also personally examined the patient with medicine team and went over assessment and plan with medical team including partner marketing intern and resident physician.
[2025-05-18] MEDS: INSULIN LISPRO (AdmeLOG) 1 UNIT/0.01 ML UNIT SC ×2 (12:56→16:51)
--- NOTE | 2025-05-18 14:00 | XR_ITS ---
Examination: Abdomen AP single view Technique: AP portable supine abdomen, single view Exam date and time: May 14 40,025 1421 hours INDICATIONS: Abdominal pain and distention this week, 5.5 alkaline film post small bowel series FINDINGS: Contrast in small bowel loops but contrast also present in the colon IMPRESSION: Findings suspicious for incomplete small bowel obstruction, additional delayed films will be obtained
[2025-05-18] MEDS: RINGERS LACTATED 1000 ML 1,000 ML 85 ML IV (14:41)
[2025-05-18] MEDS: POTASSIUM CHL 10 mEq IVPB 10 MEQ/100 ML BAG 100 MEQ IV (14:41)
[2025-05-18] MEDS: HYDROmorphone INJ 2 MG/ML VIAL 1 MG IVP ×2 (16:09→20:14)
[2025-05-18] MEDS: POTASSIUM CHL 10 mEq IVPB 10 MEQ/100 ML BAG 75 MEQ IV (16:10)
[2025-05-18] MEDS: ONDANSETRON INJ 2 MG/ML INJ 2 ML 4 MG IVP (16:10)
--- NOTE | 2025-05-18 18:00 | XR_ITS ---
Examination: Abdomen AP single view Technique: AP portable supine abdomen, single view Exam date and time: May 18, 2025, 1810 hrs. Indications: Abdominal pain and distention this week, nine-hour delayed film post small bowel series today Findings: Air distended small bowel loops, but contrast primarily in the colon Impression: Negative for complete small bowel obstruction No further films are needed
--- NOTE | 2025-05-18 18:19 | PD.SURCONS ---
HPI Consult details Consult date: 05/18/25 Reason for consultation narrative: Patient was seen in consultation for possible small bowel obstruction and some fluid around the small bowel in the pelvis History of present illness: History of present illness revealed that the patient developed abdominal pain last last night suddenly. It was crampy pain but no vomiting. She had a normal bowel movement yesterday. She has not had this problem before. The past surgery consisted of hernia repair and cholecystectomy and hysterectomy Past Medical History Past Medical History NEUROLOGIC: Positive Juarez's Palsy; Negative Neurological Disorders or Seizures CARDIAC: Positive Cardiac Disorders, Hypercholesterolemia and Hypertension; Negative Congestive Heart Failure RESPIRATORY: Negative Chronic Obstructive Pulmonary Disease (COPD) or Asthma GASTROINTESTINAL: Positive Gastrointestinal Disorders and Hemorrhoids GENITOURINARY: Positive Kidney Stones; Negative Genitourinary Disorders or Renal Disease REPRODUCTIVE: Positive Previous Pregnancies MUSCULOSKELETAL: Positive Arthritis (psoriatic); Negative Musculoskeletal Disorders ENDOCRINE: Positive Endocrine Disorders and Diabetes Mellitus Type 2; Negative Diabetes Mellitus Type 1 HEMATOLOGIC: Negative Blood Disorders or Sickle Cell Disease PSYCHO/SOCIAL: Positive Anxiety OTHER HISTORY: Positive Blood Transfusions; Negative Shingles, Falls, Blood Transfusion Reaction, Anesthesia Reactions or Cancer Family History FAMILY HISTORY: Positive Family Cardiac Disorders Surgical History SURGICAL: Positive Angiogram (october [address] Marquez), Abdominal Surgery, Joint Replacement, Hysterectomy and Section; Negative Cardiac Surgery or Nephrectomy Social History SMOKING STATUS: Never smoker SUBSTANCE USE: does not use ALCOHOL LAST INTAKE: Days (ago) Meds Home Medications and Allergies Home Medications ?Medication ?Instructions ?Recorded ?Confirmed ?Type Propranolol Hcl * (INDERAL *) 80 mg PO QDAY HEART #0 tabs 05/06/14 05/18/25 History aspirin 81 mg tablet,delayed 81 mg PO QDAY 10/22/19 05/18/25 History release empagliflozin 25 mg tablet 25 mg PO QDAY 11/03/24 05/18/25 History (Jardiance) hydrochlorothiazide 25 mg tablet 25 mg PO QAM 11/03/24 05/18/25 History rosuvastatin 5 mg tablet (Crestor) 5 mg PO QDAY 11/03/24 05/18/25 History guselkumab 100 mg/mL subcutaneous 100 mg subcut .q8wks 05/18/25 05/18/25 History pen injector (Tremfya Pen) insulin degludec 200 unit/mL (3 32 unit subcut QPM 05/18/25 05/18/25 History mL) subcutaneous pen (Tresiba FlexTouch U-200 insulin) Allergies Allergy/AdvReac Type Severity Reaction Status Date / Time No Known Allergies Allergy Verified 05/18/25 02:36 Exam Vital Signs Temp Pulse Resp BP Pulse Ox O2 Del Method O2 Flow Rate 97.7 F 92 16 121/87 H 96 Nasal Cannula 2 05/18/25 16:00 05/18/25 16:00 05/18/25 16:00 05/18/25 16:00 05/18/25 16:00 05/18/25 16:00 05/18/25 16:00 Narrative Exam Physical examination revealed slightly obese female who is 5 feet 7 inches tall weighing 190 pounds. Constitutional Constitutional: moderate distress Routine Abdominal Exam Comments: Examination of the abdomen showed slight distention with tenderness in the right upper quadrant and in the upper portion. Palpation of the abdomen also revealed a hernia in the right lower quadrant which is reducible. This may be a hernia secondary to Pfannenstiel incision used for hysterectomy. Routine Rectal Exam Comments: Deferred Routine Extremities Exam Comments: Within normal limits Results Results: Laboratory Laboratory Narrative: Laboratory results show WBC of 14,000 Results: Imaging Imaging narrative: CT scan showed findings suggestive of fairly small bowel obstruction. There was also some fluid around the small bowel in the pelvis which raise the suspicion of ischemic bowel disease Assessment & Plan Additional Assessment Additional comments: Impression: Possible early small bowel obstruction Diabetes mellitus Obesity Plan Plan: Patient does not have any tenderness in the suprapubic region where the loop of bowel is seen. Current small bowel is not very dilated and I do not think it is a high-grade small bowel obstruction. We will get this Gastrografin small bowel series and follow her patient has a dilated stomach and will benefit from NG tube decompression
[2025-05-18] MEDS: LIDOCAINE JELLY 2% 5 ML TUBE 2.5 ML TOP (19:18)
--- NOTE | 2025-05-18 19:42 | XR_ITS ---
Examination: AP chest single view Technique one AP portable upright chest single view Date and time: May 18, 2025, 2006 hrs., Comparison April 01, 2021 Indications: Post orogastric tube placement Findings: Orogastric tube in the stomach satisfactory position Minor subsegmental atelectasis both lungs Normal heart size Impression: Orogastric tube in stomach satisfactory position
[2025-05-19] VITALS (11 sets, daily range): BP systolic 104–145; BP diastolic 69–97; PULSE 95–108; RESP 12–18; TEMP 36.1–37.1; O2SAT 90–95; BMI 29.6
[2025-05-19] MEDS: INSULIN LISPRO (AdmeLOG) 1 UNIT/0.01 ML UNIT SC ×5 (00:07→23:32)
[2025-05-19] MEDS: RINGERS LACTATED 1000 ML 1,000 ML 85 ML IV ×2 (03:02→16:04)
[2025-05-19 05:53] LABS: Basophils # (Auto) 0.1 Thou/mm3 (0.0-0.2); Basophils % (Auto) 1 % (0-2.5); Eosinophils # (Auto) 0.0 Thou/mm3 (0.0-0.5); Eosinophils % (Auto) 0 % (0-10); Hematocrit 51.1 % (36.0-46.0); Hemoglobin 16.4 g/dL (12.0-16.0); Immature Granulocytes Auto 0.05 Thou/mm3 (0.00-0.00); Lymphocytes # (Auto) 1.7 Thou/mm3 (1.0-4.8); Lymphocytes % (Auto) 11 % (10-50); Mean Corpuscular HGB Conc 32.1 g/dl (31.0-37.0); Mean Corpuscular Hemoglobin 28.3 pg (25.0-35.0); Mean Corpuscular Volume 88 fL (80-100); Monocytes # (Auto) 2.5 Thou/mm3 (0.0-0.8); Monocytes % (Auto) 16 % (0-12); Neutrophils # (Auto) 10.8 Thou/mm3 (1.8-7.7); Neutrophils % (Auto) 72 % (37-80); Nucleated Red Blood Cell # 0.00 Thou/mm3 (0.00-0.00); Nucleated Red Blood Cell % 0 /100 WBC (0); Platelet Count 294 Thou/mm3 (140-440); RDW Standard Deviation 43.8 fL (36.4-46.3); Red Blood Count 5.80 Miln/mm3 (4.00-5.20); White Blood Count 15.1 Thou/mm3 (3.6-11.0)
[2025-05-19 06:19] LABS: Glucose Estimated Average 237 mg/dL (80-131); Hemoglobin A1C 9.9 % Hgb (4.8-6.0)
[2025-05-19 06:22] LABS: Alanine Aminotransferase 9 U/L (10-49); Albumin, Serum 4.2 gm/dL (3.5-5.0); Albumin/Globulin Ratio 1.4 (1.2-2.2); Alkaline Phosphatase 75 U/L (46-116); Anion Gap 12 (7-16); Aspartate Amino Transferase 10 U/L (0-34); BUN/Creatinine Ratio 17 Ratio (12-20); Bilirubin,Total 0.6 mg/dL (0.3-1.2); Blood Urea Nitrogen 17 mg/dL (9-23); Calcium 9.4 mg/dL (8.3-10.6); Calcium (Corrected) 9.4 mg/dL (8.5-10.1); Carbon Dioxide 27.9 mMol/L (20.0-31.0); Chloride 105 mMol/L (98-107); Creatinine (Component) 1.0 mg/dL (0.6-1.3); Estimated Creatinine Clearance 73.2 mL/min (>60); Globulin 2.9 gm/dL (2.3-3.5); Glucose 257 mg/dL (74-106); Magnesium 1.8 mg/dL (1.6-2.6); Osmolality,Calculated 299 (275-295); Phosphorous 4.6 mg/dL (2.4-5.1); Potassium 4.1 mMol/L (3.4-5.1); Sodium 145 mMol/L (136-145); Total Protein 7.1 gm/dL (5.7-8.2); eGFR > 60 See Note
[2025-05-19 06:41] LABS: Path Review Blood Smear Sent to Pathologist
--- NOTE | 2025-05-19 06:51 | PD.SURPROG ---
Documentation for date of: 05/19/25 Subjective Subjective Brief History: History of present illness revealed that the patient developed abdominal pain last last night suddenly. It was crampy pain but no vomiting. She had a normal bowel movement yesterday. She has not had this problem before. The past surgery consisted of hernia repair and cholecystectomy and hysterectomy Narrative: The patient is feeling much better today but she still has not passed any flatus. NG tube has drained more than 1000 cc of fluid last night. She is feeling some relief after decompression of the stomach Exam Vital Signs Temp Pulse Resp BP Pulse Ox O2 Del Method O2 Flow Rate 97.4 F 95 16 129/91 H 95 Nasal Cannula 2 05/19/25 04:00 05/19/25 04:00 05/19/25 04:00 05/19/25 04:00 05/19/25 04:00 05/19/25 04:00 05/19/25 00:00 Vital signs are normal other than tachycardia around 95 Routine Abdominal Exam Comments: Abdominal examination showed tenderness in the upper portion but no tenderness in the lower portion. Results Results: Laboratory Laboratory Narrative: Laboratory results show persistent leukocytosis around 15,000 Assessment & Plan Assessment Additional comments: Pression: ? resolving small bowel obstruction Poorly controlled diabetes Obesity Plan Plan: Even though x-ray does not show complete small bowel obstruction patient seems to have no significant relief yet. She has not passed flatus or bowel movement. And her leukocytosis is concerning. We shall see how she does today.
--- NOTE | 2025-05-19 07:57 | ESPR_ITS ---
Documentation for date of: 05/19/25 Subjective Subjective Interval history: Ms. Mills is a 54-year-old woman with a history of hypertension, diabetes on insulin, HLD, 3 sections, and hernia repair who presented with nausea and diffuse abdominal pain found to have small bowel obstruction, likely 2/2 adhesions from prior abdominal surgeries, 05/19/2025: Patient seen and examined at bedside. NG tube was placed overnight which had ~1000 cc output. This morning she reports feeling like the ng tube is not positioned well, after cxr, tube was advanced 5 cm by nursing, and reconnected to LIS. She continues to have. nausea and emesis. despite contrast being noted in the colon, she has not had bm nor has she had gas. spoke to surgery, who will reassess patient tomorrow and consider surgery. Exam Vital Signs Temp Pulse Resp BP Pulse Ox O2 Del Method O2 Flow Rate 97.3 F 99 18 133/97 H 92 L Nasal Cannula 2 05/19/25 07:35 05/19/25 07:35 05/19/25 07:35 05/19/25 07:35 05/19/25 07:35 05/19/25 07:35 05/19/25 07:35 Narrative Exam GENERAL: no moderate distress 2/2 ng tube discomfort , AAO x3,sitting upright HEENT: Head AT/ NC. Mucous membranes DRY . PERRL. NG tube in place, NECK: Supple, no lymphadenopathy, no carotid bruits. CARDIOVASCULAR: RRR. Normal S1/S2, No m/r/g. No pitting edema of bilateral LEs. RESPIRATORY: CTAB. No wheezing, rhonchi, crackles. GASTROINTESTINAL: Abdomen soft, obese, tender with light palpation no palpable masses. Bowel sounds hypoactive MUSCULOSKELETAL:? No cyanosis or edema, no visible joint swelling. NEUROLOGICAL: CN II-XII grossly intact. No focal deficits. Sensation intact, symmetric. PSYCHIATRIC: Awake and alert, not agitated, normal mood and affect. SKIN: No obvious rashes, no jaundice, normal turgor. Objective Labs 05/19/25 04:38 05/19/25 04:38 Labs: Laboratory Results - last 24 hr 05/18/25 05/19/25 10:33 04:38 WBC 15.1 H RBC 5.80 H Hgb 16.4 H Hct 51.1 H MCV 88 MCH 28.3 MCHC 32.1 RDW Std Deviation 43.8 Plt Count 294 D Neut % (Auto) 72 Lymph % (Auto) 11 [place] % (Auto) 16 H Eos % (Auto) 0 Baso % (Auto) 1 Neut # (Auto) 10.8 H Lymph # (Auto) 1.7 [place] # (Auto) 2.5 H Eos # (Auto) 0.0 Baso # (Auto) 0.1 Immature Gran # (Auto) 0.05 H Absolute Nucleated RBC 0.00 Immature Gran % 0 Nucleated RBC % 0 Smear Path Review Sent to Pathologist PT 10.6 INR 1.0 VBG pH 7.42 VBG pCO2 42 VBG pO2 41 VBG O2 Sat (Jeff) 80 L VBG Base Excess 2 Sodium 145 Potassium 4.1 D Chloride 105 Carbon Dioxide 27.9 Anion Gap 12 BUN 17 Creatinine 1.0 Estim Creat Clear Calc 73.2 eGFR > 60 BUN/Creatinine Ratio [address] Glu mg/dL 237 H Hemoglobin A1c 9.9 H Calculated Osmolality 299 H Lactic Acid 1.6 Calcium 9.4 Corrected Calcium 9.4 Phosphorus 4.6 Magnesium 1.8 Total Bilirubin 0.6 AST 10 ALT 9 L Alkaline Phosphatase 75 Total Protein 7.1 Albumin 4.2 Globulin 2.9 Albumin/Globulin Ratio 1.4 ABG Interpretation ABG results: 05/18/25 10:33 VBG pH 7.42 VBG pCO2 42 VBG pO2 41 VBG Base Excess 2 Quality Measures Quality Measures VTE prophylaxis Assessment & Plan Assessment Current Active Medications: Generic Name Dose Route Start Last Admin Trade Name Freq PRN Reason Stop Dose Admin Dextrose 25 ml 05/18/25 12:40 Dextrose 50%-Water Inj 50 Ml Syringe IV 06/17/25 12:39 Q15MIN PRN BG 50-70 responsive npo pt Dextrose 50 ml 05/18/25 12:40 Dextrose 50%-Water Inj 50 Ml Syringe IV 06/17/25 12:39 Q15MIN PRN BG <50 OR BG <70 & pt unresponsive Enoxaparin Sodium 40 mg 05/19/25 09:00 Enoxaparin Sod Inj 40 Mg/0.4 Ml Syringe SC 06/02/25 08:59 QDAY MICKEY Glucagon 1 mg 05/18/25 12:40 Glucagon Inj 1 Mg Vial IM Q15MIN PRN BG <70, and no IV access Hydromorphone HCl 1 mg 05/18/25 12:40 05/18/25 20:14 Hydromorphone Inj 2 Mg/Ml Vial IVP 05/23/25 12:39 1 mg Q4HR PRN Administration Pain 7-10 Lactated Ringer's 1,000 mls @ 85 mls/hr 05/18/25 14:00 05/19/25 03:02 Lactated Ringers IV 05/19/25 13:31 85 mls/hr .[id number] MICKEY Administration Magnesium Sulfate 4 gm in 50 mls @ 12.5 mls/hr 05/19/25 07:55 Magnesium Sulfate Ivpb IV 05/19/25 11:54 X1 ONE Insulin Human Lispro 0 unit 05/18/25 12:45 05/19/25 06:01 Insulin Lispro (Admelog) 1 Unit/0.01 Ml Unit SC 06/17/25 12:44 3 unit Q6HR MICKEY Administration Protocol Ondansetron HCl 4 mg 05/18/25 12:40 05/18/25 16:10 Ondansetron Inj 2 Mg/Ml Inj 2 Ml IVP 06/17/25 12:39 4 mg Q6H PRN Administration NAUSEA OR VOMITING Protocol Plan Ms. Mills is a 54-year-old woman with a history of hypertension, diabetes on insulin, HLD, 3 sections, and hernia repair who presented with nausea and diffuse abdominal pain found to have small bowel obstruction, likely 2/2 adhesions from prior abdominal surgeries, completed small bowel series but no bm nor gas to date, surgery consult, consider exlap. SBO 2/2 intrabdominal adhesions from prior surgeries pt reports having had 3 c sections and a prior hernia repair, all risk factors for adhesions and subsequent SBO. CTAP with c/f early SBO KUB with contrast shows contrast dilated loops of bowel. Small bowel series: contrast noted in the colon , no BM to date, no gas. PLAN: NPO NG tube on LIS IVF completed small bowel series, but no bm nor gas todate, may need exlap if symptoms persist. Consider Surgery consult if SBO does not resolve with gastrogaffin series Pain: Dilaudid 1mg IV q4hr prn, IV APAP q6hr prn Nausea: Zofran PRN HTN Hx anginal pain s/p cardiac cath 11/03/[address] Arvizu with no occlusions noted PLAN BP well controlled while inpatient SBP 120s hold home HCTZ 25 mg qam hold home ASA 81 IDT2DM home regimen: degludec 32 U qhs, jardiance 25 mg qd , a1c 9.9 PLAN NPO ISS q6hr Blood glucose checks q6hr degludec 10 U x1 HLD PLAN hold home rosouvostatin 5 mg iso NPO Psoriatic arthritis home tremfya sub q 100 mg q8 weeks Dispo: supportive treatment, continues to have nausea and vomiting and no gas, no bm, ng tube remains on LIS Diet: NPO Bowel Reg: gastrogaffin series, no bm no gas yet VTE ppx: lovenox 40 GI ppx: not indicated Code status: FULL Plan discussed with Dr Woody, and Dr. Katelyn Rodriguez MD PGY1 Attending Provider Attestation/Addendum 54-year-old female with multiple comorbidities including hypertension, hyperlipidemia, type 2 diabetes mellitus and past surgical history of hernia repair and presented with abdominal pain found to have small bowel obstruction plan to continue NG tube to low wall suction and Gastrografin pending. I reviewed above note and agree with findings and plans. Overnight, Gastrografin done and was able to pass through the small bowel however in the colon. Furthermore, patient denies any bowel movements and unable to pass any flatus. Will reach out to surgery and continue NG tube to low wall suction (700 mL out). Likely patient will need surgical intervention for adhesion lysis. I have also personally examined the patient with medicine team and went over assessment and plan with medical team including software developer intern and resident physician.
--- NOTE | 2025-05-19 09:14 | XR_ITS ---
Examination: AP chest single view Technique one AP portable upright chest single view Date and time: May 19, 2025 0953 hours, comparison 05/18/2025 INDICATIONS: Post orogastric tube placement FINDINGS: Orogastric tube sidehole at the GE junction Atelectasis left lower lobe Normal heart size IMPRESSION: Advance the orogastric tube 5 cm
[2025-05-19] MEDS: Magnesium Sulfate 4 GM Ivpb 4 GM/50 ML BAG IV (10:01)
[2025-05-19] MEDS: ENOXAPARIN SOD INJ 40 MG/0.4 ML SYRINGE SC (10:02)
--- NOTE | 2025-05-19 11:14 | PC.SS ---
Rounding: ngT in pace, on IV pain meds, DC plan home
[2025-05-19] MEDS: INSULIN DEGLUDEC 5 UNIT/0.05 ML (PER 5 UNITS) 10 UNIT SC (12:02)
--- NOTE | 2025-05-19 16:00 | XR_ITS ---
Examination: Abdomen AP single view Technique: AP portable supine abdomen, single view Exam date and time: May 19, 2025, 1628 hours INDICATIONS: Abdominal distention today. FINDINGS: Abnormal air distended small bowel loops remain although contrast is present in the colon Orogastric tube in the stomach IMPRESSION: Abnormal air distended small bowel loops remain in the central abdomen
--- NOTE | 2025-05-19 16:48 | PD.SURPROG ---
Documentation for date of: 05/19/25 Subjective Subjective Brief History: History of present illness revealed that the patient developed abdominal pain last last night suddenly. It was crampy pain but no vomiting. She had a normal bowel movement yesterday. She has not had this problem before. The past surgery consisted of hernia repair and cholecystectomy and hysterectomy Narrative: The patient is still having some abdominal pain which is crampy. She has not had any bowel movement or passage of gas despite contrast seen in the colon Exam Vital Signs Temp Pulse Resp BP Pulse Ox O2 Del Method O2 Flow Rate 97.3 F 98 18 128/96 H 90 L Room Air 2 05/19/25 15:40 05/19/25 15:40 05/19/25 15:40 05/19/25 15:40 05/19/25 15:40 05/19/25 15:40 05/19/25 07:35 Patient is tachycardic with heart rate around 98 Assessment & Plan Assessment Additional comments: Repeat abdominal x-ray showed some dilated loops of small bowel. Plan Plan: Patient will require exploration for a possible complete small bowel obstruction
--- NOTE | 2025-05-19 20:39 | PD.SUROPNT ---
Date of Procedure 05/19/25 Pre Op Diagnosis Complete small bowel obstruction Post Op Diagnosis Same due to extensive adhesions in the pelvis Procedure Exploratory laparotomy and lysis of adhesion Incidental appendectomy Findings Patient is found to have a complete small bowel obstruction due to an adhesion at the pelvis where the previous hysterectomy was performed. Procedure Description After the prescient was brought to the operating room endotracheal anesthesia was given. Young catheter was inserted. Abdomen was prepped with ChloraPrep solution and draped in a sterile manner. Patient has received 3.375 g of Zosyn for prophylaxis because of the obstructed bowel and translocation of the bacteria. Timeout is performed. Then a lower midline incision was made and abdominal cavity was entered. Extensive adhesions of the omentum to the anterior abdominal wall was identified. This was released carefully and abdominal Was entered. Patient was found to have dilated loops of small bowel which was followed closely. Because of the extensive dilatation of the small bowel it was difficult to explore the bowel. When it reached the pelvis I was able to see an adhesion through which loop of bowel was stuck. This band was incised carefully using a Colleen clamp and Metzenbaum scissors the bowel was pulled out. Distal portion of the bowel for about 2 feet was normal in caliber and it was traced all the way to the cecum. The appendix was removed to prevent any future diagnostic problem. Mesoappendix was clamped with Colleen clamp and tied with 2-0 silk suture. Base of the appendix was tied with 2-0 silk suture and divided at the end was coagulated with cautery. Then extensive irrigation was carried out to check for the bleeding points the omentum. After the sponge count was confirmed and after confirming the NG tube position in the stomach abdomen was closed in 1 layer using running PDS. Subcutaneous tissue was closed with 3-0 chromic and injected large amounts of half percent Xylocaine with epinephrine and the skin was closed with melba dressing was applied with Adaptic and 4 x 4 gauze and patient tolerated the procedure well. Anesthesia GETA Pathology / specimen Other (Incidental appendix) IVF Infused 800 Estimated Blood Loss 300 Condition Stable Disposition PACU Surgeon Daren Louis MD Surgical Staff Operation Date: 05/19/25 18:45 Case Staff Anesthesiologist: Beto Sherman RN First Assistant: Adam Rodriguez
--- NOTE | 2025-05-19 20:50 | SUR.PHASEI ---
2049: Pt. wakes to name then drifts back to sleep, vitals stable, breathing unlabored, no complaint of pain or nausea, midline dressing to ABD CDI, no active bleed noted, NG tube in left nare on LIS suctioning green gastric content, corral catheter in place, report received from MD Sherman and Mely QUARLES.
--- NOTE | 2025-05-19 21:25 | SUR.PHASEI ---
2125: Pt. AAOx4, vitals stable, breathing unlabored, no complaint of pain or nausea, dressing to midline ABD CDI, no active bleed noted, corral catheter in place, NG tube in place, pt. tolerated bites of ice chips well, gave report to Socorro QUARLES prior to transfer to room 373.
[2025-05-19] MEDS: SODIUM CHLORIDE 0.9% 1000 ML 1,000 ML 150 ML IV (22:01)
[2025-05-20] VITALS (8 sets, daily range): BP systolic 108–127; BP diastolic 61–83; PULSE 77–101; RESP 18–19; TEMP 36.3–37.1; O2SAT 92–97
--- NOTE | 2025-05-20 00:05 | PC.RT ---
pt asleep so IS instruct could not be done.
[2025-05-20] MEDS: PIPER/TAZO 3.375 GM PREMIX 3.375 GM/50 ML BAG IV ×3 (02:02→21:50)
[2025-05-20] MEDS: SODIUM CHLORIDE 0.9% 1000 ML 1,000 ML 150 ML IV (04:09)
[2025-05-20] MEDS: INSULIN LISPRO (AdmeLOG) 1 UNIT/0.01 ML UNIT SC ×2 (05:29→11:43)
[2025-05-20] MEDS: MORPHINE SULF INJ 4 MG/ML VIAL 5 MG IVP (05:57)
[2025-05-20 06:10] LABS: Basophils # (Auto) 0.1 Thou/mm3 (0.0-0.2); Basophils % (Auto) 0 % (0-2.5); Eosinophils # (Auto) 0.0 Thou/mm3 (0.0-0.5); Eosinophils % (Auto) 0 % (0-10); Hematocrit 40.6 % (36.0-46.0); Hemoglobin 12.9 g/dL (12.0-16.0); Immature Granulocytes Auto 0.05 Thou/mm3 (0.00-0.00); Lymphocytes # (Auto) 1.0 Thou/mm3 (1.0-4.8); Lymphocytes % (Auto) 6 % (10-50); Mean Corpuscular HGB Conc 31.8 g/dl (31.0-37.0); Mean Corpuscular Hemoglobin 28.4 pg (25.0-35.0); Mean Corpuscular Volume 89 fL (80-100); Monocytes # (Auto) 2.8 Thou/mm3 (0.0-0.8); Monocytes % (Auto) 18 % (0-12); Neutrophils # (Auto) 11.2 Thou/mm3 (1.8-7.7); Neutrophils % (Auto) 74 % (37-80); Nucleated Red Blood Cell # 0.00 Thou/mm3 (0.00-0.00); Nucleated Red Blood Cell % 0 /100 WBC (0); Platelet Count 238 Thou/mm3 (140-440); RDW Standard Deviation 44.7 fL (36.4-46.3); Red Blood Count 4.54 Miln/mm3 (4.00-5.20); White Blood Count 15.0 Thou/mm3 (3.6-11.0)
[2025-05-20 07:02] LABS: Alanine Aminotransferase 8 U/L (10-49); Albumin, Serum 3.5 gm/dL (3.5-5.0); Albumin/Globulin Ratio 1.5 (1.2-2.2); Alkaline Phosphatase 53 U/L (46-116); Anion Gap 12 (7-16); Aspartate Amino Transferase 12 U/L (0-34); BUN/Creatinine Ratio 19 Ratio (12-20); Bilirubin,Total 0.5 mg/dL (0.3-1.2); Blood Urea Nitrogen 29 mg/dL (9-23); Calcium 8.6 mg/dL (8.3-10.6); Calcium (Corrected) 9.0 mg/dL (8.5-10.1); Carbon Dioxide 27.0 mMol/L (20.0-31.0); Chloride 108 mMol/L (98-107); Creatinine (Component) 1.5 mg/dL (0.6-1.3); Estimated Creatinine Clearance 47.8 mL/min (>60); Globulin 2.4 gm/dL (2.3-3.5); Glucose 232 mg/dL (74-106); Magnesium 2.3 mg/dL (1.6-2.6); Osmolality,Calculated 305 (275-295); Phosphorous 4.5 mg/dL (2.4-5.1); Potassium 4.0 mMol/L (3.4-5.1); Sodium 147 mMol/L (136-145); Total Protein 5.9 gm/dL (5.7-8.2); eGFR 41 See Note
--- NOTE | 2025-05-20 07:58 | ESPR_ITS ---
<Statement entered by Lore Raman MD - 05/20/25 14:58> Patient examined at bedside. No events overnight. Vitals are stable. Mild leukocytosis of 15, sodium 147, Cr uptrended 1.5. Yesterday had exploratory laparotomy and lysis of adhesions with Incidental appendectomy. Surgical site intact, no bleeding, no erythema. Pain is improving since procedure. NG in place with low intermittent suctioning. Endorses flatulence but no bowel movement as of yet. Continue n.p.o. status with NG on LIS. The patient's management plan was discussed with my attending physician Dr. Schofield. Lore Raman, PGY-2 <Statement entered by Kenya Woody MD - 05/20/25 14:22> Patient seen and examined at bedside. Patient was taken to surgery yesterday with Dr. Aguirre and was found to have extensive adhesions with estimated blood loss of 300 mL. Patient is seen with NG tube placed on low intermittent suction. Patient states that her pain is much improved with IV pain meds. Patient will continue with IV fluids, IV antibiotics as well. Patient does state that she has been passing gas since yesterday, however no bowel movement since admission. Patient will remain n.p.o. until patient's output from her NG tube decreases.. Anticipate discharge within 48 hours. I discussed with and supervised the international project engineer physician who took care of this patient. I personally saw and examined the patient and discussed the assessment and plan with the entire medicine team, including my attending Dr. Schofield, I agree with most of the assessment and plan as documented below Kenya Woody M.D. PGY-3 Disclaimer: Despite multiple revisions, due to the dictation software being used, the document bellow may not be free of grammatical errors including phonetic/typographic errors. However, this does not deter from our commitment to providing health care in the patient's best interest in mind. Documentation for date of: 05/20/25 Subjective Subjective Interval history: Ms. Mills is a 54-year-old woman with a history of hypertension, diabetes on insulin, HLD, 3 sections, and hernia repair who presented with nausea and diffuse abdominal pain found to have small bowel obstruction, likely 2/2 adhesions from prior abdominal surgeries, 05/19/2025: Patient seen and examined at bedside. NG tube was placed overnight which had ~1000 cc output. This morning she reports feeling like the ng tube is not positioned well, after cxr, tube was advanced 5 cm by nursing, and reconnected to LIS. She continues to have. nausea and emesis. despite contrast being noted in the colon, she has not had bm nor has she had gas. spoke to surgery, who will reassess patient tomorrow and consider surgery. 05/20/2025: Patient seen and examined at bedside. Overnight she was taken for ex lap with Dr. Diaz, found to have extensive adhesions which were lysed, she had ~[address] ebl. [address] tube in place on LIS. This morning she reports that her pain is much improved. She continues on IV fluids. IV abx and IV pain medications. she reports passing gas but no BM to date. Cr 1.5, from 1.0. She remains npo, will advance diet as tolerated. Exam Vital Signs Temp Pulse Resp BP Pulse Ox O2 Del Method O2 Flow Rate 97.3 F 91 18 118/80 94 L Nasal Cannula 2 05/20/25 07:36 05/20/25 07:36 05/20/25 07:36 05/20/25 07:36 05/20/25 07:36 05/20/25 07:36 05/20/25 07:36 Narrative Exam GENERAL: no acute distress, ng tube in place on LIS , AAO x3, laying in bed. HEENT: Head AT/ NC. Mucous membranes DRY . PERRL. NG tube in place, NECK: Supple, no lymphadenopathy, no carotid bruits. CARDIOVASCULAR: RRR. Normal S1/S2, No m/r/g. No pitting edema of bilateral LEs. RESPIRATORY: CTAB. No wheezing, rhonchi, crackles. GASTROINTESTINAL: Abdomen soft, obese, tender with light palpation around midline incision. no palpable masses. Bowel sounds hypoactive, midline surgical incision with dressing in place. MUSCULOSKELETAL:? No cyanosis or edema, no visible joint swelling. NEUROLOGICAL: CN II-XII grossly intact. No focal deficits. Sensation intact, symmetric. PSYCHIATRIC: Awake and alert, not agitated, normal mood and affect. SKIN: No obvious rashes, no jaundice, normal turgor. Objective Labs 05/21/25 05:28 05/21/25 05:28 Labs: Laboratory Results - last 24 hr 05/20/25 04:47 WBC 15.0 H RBC 4.54 Hgb 12.9 D Hct 40.6 D MCV 89 MCH 28.4 MCHC 31.8 RDW Std Deviation 44.7 Plt Count 238 D Neut % (Auto) 74 Lymph % (Auto) 6 L [place] % (Auto) 18 H Eos % (Auto) 0 Baso % (Auto) 0 Neut # (Auto) 11.2 H Lymph # (Auto) 1.0 [place] # (Auto) 2.8 H Eos # (Auto) 0.0 Baso # (Auto) 0.1 Immature Gran # (Auto) 0.05 H Absolute Nucleated RBC 0.00 Immature Gran % 0 Nucleated RBC % 0 Sodium 147 H Potassium 4.0 Chloride 108 H Carbon Dioxide 27.0 Anion Gap 12 BUN 29 H Creatinine 1.5 H D Estim Creat Clear Calc 47.8 L eGFR 41 L BUN/Creatinine Ratio 19 Glucose 232 H Calculated Osmolality 305 H Calcium 8.6 Corrected Calcium 9.0 Phosphorus 4.5 Magnesium 2.3 Total Bilirubin 0.5 AST 12 ALT 8 L Alkaline Phosphatase 53 D Total Protein 5.9 Albumin 3.5 D Globulin 2.4 Albumin/Globulin Ratio 1.5 ABG Interpretation ABG results: 05/18/25 10:33 VBG pH 7.42 VBG pCO2 42 VBG pO2 41 VBG Base Excess 2 Quality Measures Quality Measures VTE prophylaxis Assessment & Plan Assessment Current Active Medications: Generic Name Dose Route Start Last Admin Trade Name Freq PRN Reason Stop Dose Admin Acetaminophen 650 mg 05/19/25 21:38 Acetaminophen 325 Mg Tablet PO 06/18/25 21:37 Q6HR PRN [id number] Dextrose 25 ml 05/18/25 12:40 Dextrose 50%-Water Inj 50 Ml Syringe IV 06/17/25 12:39 Q15MIN PRN BG 50-70 responsive npo pt Dextrose 50 ml 05/18/25 12:40 Dextrose 50%-Water Inj 50 Ml Syringe IV 06/17/25 12:39 Q15MIN PRN BG <50 OR BG <70 & pt unresponsive Enoxaparin Sodium 40 mg 05/19/25 09:00 05/19/25 10:02 Enoxaparin Sod Inj 40 Mg/0.4 Ml Syringe SC 06/02/25 08:59 40 mg QDAY MICKEY Administration Glucagon 1 mg 05/18/25 12:40 Glucagon Inj 1 Mg Vial IM Q15MIN PRN BG <70, and no IV access Sodium Chloride 1,000 mls @ 150 mls/hr 05/19/25 21:38 05/20/25 04:09 Ns IV 06/18/25 21:37 150 mls/hr .[id number] MICKEY Administration Piperacillin/Tazobactam/Dextrose 3.375 gm in 50 mls @ 12.5 mls/hr 05/20/25 03:00 05/20/25 02:02 Zosyn IV 05/27/25 02:59 12.5 mls/hr Q8HR MICKEY Administration Protocol Insulin Human Lispro 0 unit 05/18/25 12:45 05/20/25 05:29 Insulin Lispro (Admelog) 1 Unit/0.01 Ml Unit SC 06/17/25 12:44 2 unit Q6HR MICKEY Administration Protocol Morphine Sulfate 5 mg 05/19/25 21:02 05/20/25 05:57 Morphine Sulf Inj 4 Mg/Ml Vial IVP 05/24/25 21:01 5 mg Q4H PRN Administration PAIN SCALE 4-10(Mod-Sev Ondansetron HCl 4 mg 05/18/25 12:40 05/18/25 16:10 Ondansetron Inj 2 Mg/Ml Inj 2 Ml IVP 06/17/25 12:39 4 mg Q6H PRN Administration NAUSEA OR VOMITING Protocol Plan Ms. Mills is a 54-year-old woman with a history of hypertension, diabetes on insulin, HLD, 3 sections, and hernia repair who presented with nausea and diffuse abdominal pain found to have small bowel obstruction, likely 2/2 adhesions from prior abdominal surgeries, completed small bowel series but no bm nor gas to date, surgery consulted, s/p ex lap continues with ng tube on suction SBO s/p ex lap 05/19 2/2 intrabdominal adhesions from prior surgeries pt reports having had 3 c sections and a prior hernia repair, all risk factors for adhesions and subsequent SBO. CTAP with c/f early SBO KUB with contrast shows contrast dilated loops of bowel. Small bowel series: contrast noted in the colon PLAN: NPO NG tube on LIS IVF completed small bowel series, but no bm nor gas todate, may need exlap if symptoms persist. s/p ex lap with Dr. Diaz with lysis of adhesions. Pain: Dilaudid 1mg IV q4hr prn, IV APAP q6hr scheduled Nausea: Zofran PRN ABx: Zosyn 3.375 q8hr #prerenal LISA Cr: 1.5 from 1.1 Ddx: Consider pre vs intra vs post renal etiologies suspect prerenal due to blood loss during surgery and npo. Dx - Daily CMP Tx - Avoid nephrotoxic medications - Increased maintenance fluids to 150/hr 1/2 NS Mild hypernatremia mild hyperchloremia - switch iv fluids from ns to 1/2 ns. HTN Hx anginal pain s/p cardiac cath 11/03/[address] Arvizu with no occlusions noted PLAN BP well controlled while inpatient SBP 120s hold home HCTZ 25 mg qam hold home ASA 81 IDT2DM home regimen: degludec 32 U qhs, jardiance 25 mg qd , a1c 9.9 PLAN NPO ISS q6hr step 2 Blood glucose checks q6hr degludec 15qd. HLD PLAN hold home rosouvostatin 5 mg iso NPO Psoriatic arthritis home tremfya sub q 100 mg q8 weeks Dispo: npo, s/p ex lap, ng tube remains on LIS, no bm to date, slight prerenal lisa Diet: NPO Bowel Reg: gastrogaffin series, no bm no gas yet VTE ppx: lovenox 40 GI ppx: not indicated Code status: FULL Plan discussed with Dr. Raman, Dr Woody, and Dr. Kanwal Rodriguez MD PGY1 Attending Provider Attestation/Addendum I, Sabrina Schofield DO, attest that I was physically present for the gamboa portions of the service and evaluated the patient with the resident and I reviewed and discussed the case with the resident and agree with the resident's findings and plans of care as documented above Patient seen and evaluated this AM. NG tube remains in place. Patient reports soreness, but pain is well controlled. She is currently only able to have ice chips. Will leave diet to gen/surg to be advanced. Bilious output from NG tube of about 300mL noted. Dressing over abdomen is clean, dry and intact. Abdomen is also soft on palpation, no ecchymosis or rashes noted. Continue with post op care. Mild hypernatremia and LISA noted, will switch NS to 1/2NS.
[2025-05-20] MEDS: ENOXAPARIN SOD INJ 40 MG/0.4 ML SYRINGE SC (08:17)
[2025-05-20] MEDS: INSULIN LISPRO (AdmeLOG) 1 UNIT/0.01 ML UNIT 2 UNIT SC ×2 (08:28→11:42)
[2025-05-20] MEDS: INSULIN DEGLUDEC 5 UNIT/0.05 ML (PER 5 UNITS) 15 UNIT SC (08:29)
--- NOTE | 2025-05-20 09:11 | PC.SS ---
Rounding: POD #1 Still NPO, will advance diet slowly as tolerated, DC plan home
--- NOTE | 2025-05-20 10:08 | PD.SURPROG ---
Documentation for date of: 05/20/25 Subjective Subjective Brief History: History of present illness revealed that the patient developed abdominal pain last last night suddenly. It was crampy pain but no vomiting. She had a normal bowel movement yesterday. She has not had this problem before. The past surgery consisted of hernia repair and cholecystectomy and hysterectomy Narrative: Patient has pain over the incision and therefore is uncomfortable. She is also complaining of NG tube. Her vital signs are stable other than mild tachycardia Exam Vital Signs Temp Pulse Resp BP Pulse Ox O2 Del Method O2 Flow Rate 97.3 F 91 18 118/80 94 L Nasal Cannula 2 05/20/25 07:36 05/20/25 07:36 05/20/25 07:36 05/20/25 07:36 05/20/25 07:36 05/20/25 07:36 05/20/25 07:36 Routine Abdominal Exam Comments: Showed some bowel sounds that are active in the abdomen. The NG tube drainage was around 200 mL Results Results: Laboratory Laboratory Narrative: Lab results show WBC 15,000 but her BUN and creatinine are high probably due to dehydration and third space loss in the small bowel Assessment & Plan Assessment Additional comments: Impression: Stable postoperative course Still behind in the fluid Plan Plan: Visual keep the IV fluid at 150 cc an hour and also keep the NG tube. We will DC Young. PROCEDURES: Procedures Exploratory laparotomy and lysis of adhesion Incidental appendectomy
[2025-05-20] MEDS: SODIUM CHLORIDE 0.45 % 1,000 ML 150 ML IV ×2 (11:18→19:56)
[2025-05-20] MEDS: MORPHINE SULF INJ 4 MG/ML VIAL 2 MG IVP (11:44)
[2025-05-20] MEDS: ACETAMINOPHEN IVPB 1,000 MG/100 ML VIAL 250 MG IV ×2 (13:31→18:33)
[2025-05-20] MEDS: HYDROmorphone INJ 2 MG/ML VIAL 1 MG IVP (18:17)
[2025-05-21] VITALS (8 sets, daily range): BP systolic 96–120; BP diastolic 62–78; PULSE 62–83; RESP 15–90; TEMP 36.2–36.6; O2SAT 90–96
[2025-05-21] MEDS: HYDROmorphone INJ 2 MG/ML VIAL 1 MG IVP ×4 (00:33→22:25)
[2025-05-21] MEDS: ACETAMINOPHEN IVPB 1,000 MG/100 ML VIAL 250 MG IV ×2 (01:15→06:37)
[2025-05-21] MEDS: PIPER/TAZO 3.375 GM PREMIX 3.375 GM/50 ML BAG IV ×3 (05:38→21:14)
[2025-05-21 06:11] LABS: Basophils # (Auto) 0.0 Thou/mm3 (0.0-0.2); Basophils % (Auto) 0 % (0-2.5); Eosinophils # (Auto) 0.3 Thou/mm3 (0.0-0.5); Eosinophils % (Auto) 3 % (0-10); Hematocrit 35.2 % (36.0-46.0); Hemoglobin 11.2 g/dL (12.0-16.0); Immature Granulocytes Auto 0.03 Thou/mm3 (0.00-0.00); Lymphocytes # (Auto) 2.3 Thou/mm3 (1.0-4.8); Lymphocytes % (Auto) 23 % (10-50); Mean Corpuscular HGB Conc 31.8 g/dl (31.0-37.0); Mean Corpuscular Hemoglobin 29.3 pg (25.0-35.0); Mean Corpuscular Volume 92 fL (80-100); Monocytes # (Auto) 1.8 Thou/mm3 (0.0-0.8); Monocytes % (Auto) 18 % (0-12); Neutrophils # (Auto) 5.6 Thou/mm3 (1.8-7.7); Neutrophils % (Auto) 55 % (37-80); Nucleated Red Blood Cell # 0.00 Thou/mm3 (0.00-0.00); Nucleated Red Blood Cell % 0 /100 WBC (0); Platelet Count 210 Thou/mm3 (140-440); RDW Standard Deviation 46.8 fL (36.4-46.3); Red Blood Count 3.82 Miln/mm3 (4.00-5.20); White Blood Count 10.2 Thou/mm3 (3.6-11.0)
[2025-05-21 06:53] LABS: Alanine Aminotransferase 7 U/L (10-49); Albumin, Serum 3.7 gm/dL (3.5-5.0); Albumin/Globulin Ratio 1.4 (1.2-2.2); Alkaline Phosphatase 49 U/L (46-116); Anion Gap 9 (7-16); Aspartate Amino Transferase 15 U/L (0-34); BUN/Creatinine Ratio 23 Ratio (12-20); Bilirubin,Total 0.6 mg/dL (0.3-1.2); Blood Urea Nitrogen 28 mg/dL (9-23); Calcium 8.2 mg/dL (8.3-10.6); Calcium (Corrected) 8.4 mg/dL (8.5-10.1); Carbon Dioxide 25.9 mMol/L (20.0-31.0); Chloride 107 mMol/L (98-107); Creatinine (Component) 1.2 mg/dL (0.6-1.3); Estimated Creatinine Clearance 59.8 mL/min (>60); Globulin 2.6 gm/dL (2.3-3.5); Glucose 95 mg/dL (74-106); Magnesium 2.2 mg/dL (1.6-2.6); Osmolality,Calculated 288 (275-295); Phosphorous 2.9 mg/dL (2.4-5.1); Potassium 3.4 mMol/L (3.4-5.1); Sodium 142 mMol/L (136-145); Total Protein 6.3 gm/dL (5.7-8.2); eGFR 54 See Note
[2025-05-21] MEDS: ENOXAPARIN SOD INJ 40 MG/0.4 ML SYRINGE SC (08:36)
[2025-05-21] MEDS: SODIUM CHLORIDE 0.45 % 1,000 ML 100 ML IV (10:42)
--- NOTE | 2025-05-21 11:10 | PC.SS ---
Patient is a 54 year old female presenting to the hospital for SBO. JUSTICE COURT DEPUTY CLERK met with patient at bedside, role and reason for visit was explained. Patient stated that she lives at home with daughter. Patient state that in case she is unable to make medical decisions on her own she would like her daughter Salome Thorntonl PH: [phone] to make them. 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 Kim, her last appointment was on April 2025, her pharmacy of choice is [facility]. Patient stated she does not use any DME at home, would like to return home once medically clear, and has transportation. PCP: Dr. Holland Decision maker: Salome Felton PH: [phone] D/c: home
[2025-05-21] MEDS: POT CHL ADDITIVE IV (11:12)
[2025-05-21] MEDS: SODIUM CHLORIDE 0.45% IV (11:12)
[2025-05-21] MEDS: BENZOCAINE 20% (Hurricaine) SPRAY 1 DOSE TOP (14:58)
--- NOTE | 2025-05-21 17:34 | PC.NURSE ---
Dr elizabeth notified that pt bed glucose is 63. dr stated to follow potocol
[2025-05-21] MEDS: DEXTROSE 50%-WATER INJ 50 ML SYRINGE 25 ML IV ×2 (17:40→23:14)
--- NOTE | 2025-05-21 18:21 | PD.SURPROG ---
Documentation for date of: 05/21/25 Subjective Subjective Brief History: History of present illness revealed that the patient developed abdominal pain last last night suddenly. It was crampy pain but no vomiting. She had a normal bowel movement yesterday. She has not had this problem before. The past surgery consisted of hernia repair and cholecystectomy and hysterectomy Narrative: The patient is comfortable other than the incisional pain in the lower abdomen. Exam Vital Signs Temp Pulse Resp BP Pulse Ox O2 Del Method O2 Flow Rate 97.7 F 80 16 115/68 90 L Nasal Cannula 2 05/21/25 16:00 05/21/25 16:00 05/21/25 16:00 05/21/25 16:00 05/21/25 16:00 05/21/25 16:00 05/21/25 16:00 Your vital signs are normal Routine Abdominal Exam Comments: Abdominal examination shows bowel sounds and she is passing flatus Results Results: Laboratory Laboratory Narrative: Lab results show some prerenal azotemia Assessment & Plan Assessment Additional comments: Plan: Satisfactory postoperative course Plan Plan: We shall DC NG tube today but keep her n.p.o. till tomorrow I will continue IV fluids for at least another day because she has considerable third space loss in the small bowel which are very dilated PROCEDURES: Procedures Exploratory laparotomy and lysis of adhesion Incidental appendectomy
--- NOTE | 2025-05-21 18:52 | ESPR_ITS ---
Documentation for date of: 05/21/25 Subjective Subjective Interval history: Patient examined at bedside. No events overnight. Vitals are stable. Sodium 142, Cr uptrended downtrended to 1.2. S/p exploratory laparotomy and lysis of adhesions with incidental appendectomy. Surgical site intact, no bleeding, no erythema. Abdominal pain has resolved but she complains of sore throat. Use benzonicaine spray. States she is passing gas but not had BM yet. Continue n.p.o. status with NG on LIS and adjustment of long acting insulin from 15 to 10units. Exam Vital Signs Temp Pulse Resp BP Pulse Ox O2 Del Method O2 Flow Rate 97.7 F 80 16 115/68 90 L Nasal Cannula 2 05/21/25 16:00 05/21/25 16:00 05/21/25 16:00 05/21/25 16:00 05/21/25 16:00 05/21/25 16:00 05/21/25 16:00 Narrative Exam GENERAL: no acute distress, ng tube in place on LIS , AAO x3, laying in bed. HEENT: Head AT/ NC. Mucous membranes DRY . PERRL. NG tube in place, no significant erythema in throat NECK: Supple, no lymphadenopathy, no carotid bruits. CARDIOVASCULAR: RRR. Normal S1/S2, No m/r/g. No pitting edema of bilateral LEs. RESPIRATORY: CTAB. No wheezing, rhonchi, crackles. GASTROINTESTINAL: Abdomen soft, obese, tender with light palpation around midline incision. no palpable masses. Bowel sounds more in LLQ, midline surgical incision with dressing in place. MUSCULOSKELETAL:? No cyanosis or edema, no visible joint swelling. NEUROLOGICAL: CN II-XII grossly intact. No focal deficits. Sensation intact, symmetric. PSYCHIATRIC: Awake and alert, not agitated, normal mood and affect. SKIN: No obvious rashes, no jaundice, normal turgor. Objective Labs 05/22/25 05:53 05/22/25 05:53 Labs: Laboratory Results - last 24 hr 05/21/25 05:28 WBC 10.2 RBC 3.82 L Hgb 11.2 L Hct 35.2 L MCV 92 MCH 29.3 MCHC 31.8 RDW Std Deviation 46.8 H Plt Count 210 Neut % (Auto) 55 Lymph % (Auto) 23 [place] % (Auto) 18 H Eos % (Auto) 3 Baso % (Auto) 0 Neut # (Auto) 5.6 Lymph # (Auto) 2.3 [place] # (Auto) 1.8 H Eos # (Auto) 0.3 Baso # (Auto) 0.0 Immature Gran # (Auto) 0.03 H Absolute Nucleated RBC 0.00 Immature Gran % 0 Nucleated RBC % 0 Sodium 142 Potassium 3.4 D Chloride 107 Carbon Dioxide 25.9 Anion Gap 9 BUN 28 H Creatinine 1.2 Estim Creat Clear Calc 59.8 L eGFR 54 L BUN/Creatinine Ratio 23 H Glucose 95 D Calculated Osmolality 288 Calcium 8.2 L Corrected Calcium 8.4 L Phosphorus 2.9 Magnesium 2.2 Total Bilirubin 0.6 AST 15 ALT 7 L Alkaline Phosphatase 49 Total Protein 6.3 Albumin 3.7 Globulin 2.6 Albumin/Globulin Ratio 1.4 ABG Interpretation ABG results: 05/18/25 10:33 VBG pH 7.42 VBG pCO2 42 VBG pO2 41 VBG Base Excess 2 Quality Measures Quality Measures VTE prophylaxis Assessment & Plan Assessment Current Active Medications: Generic Name Dose Route Start Last Admin Trade Name Freq PRN Reason Stop Dose Admin Acetaminophen 650 mg 05/21/25 13:49 Acetaminophen 325 Mg Tablet PO 06/18/25 21:37 Q6HR PRN FEVER>101.5 Benzocaine 0 dose 05/21/25 12:47 05/21/25 14:58 Benzocaine 20% (Hurricaine) [place] 1 Dose TOP 06/20/25 12:46 1 dose QID PRN Administration SORE THROAT Dextrose 25 ml 05/18/25 12:40 05/21/25 17:40 Dextrose 50%-Water Inj 50 Ml Syringe IV 06/17/25 12:39 25 ml Q15MIN PRN Administration BG 50-70 responsive npo pt Dextrose 50 ml 05/18/25 12:40 Dextrose 50%-Water Inj 50 Ml Syringe IV 06/17/25 12:39 Q15MIN PRN BG <50 OR BG <70 & pt unresponsive Enoxaparin Sodium 40 mg 05/19/25 09:00 05/21/25 08:36 Enoxaparin Sod Inj 40 Mg/0.4 Ml Syringe SC 06/02/25 08:59 40 mg QDAY MICKEY Administration Glucagon 1 mg 05/18/25 12:40 Glucagon Inj 1 Mg Vial IM Q15MIN PRN BG <70, and no IV access Hydromorphone HCl 1 mg 05/20/25 12:36 05/21/25 18:12 Hydromorphone Inj 2 Mg/Ml Vial IVP 05/25/25 12:35 1 mg Q4HR PRN Administration PAIN Piperacillin/Tazobactam/Dextrose 3.375 gm in 50 mls @ 12.5 mls/hr 05/20/25 03:00 05/21/25 14:38 Zosyn IV 05/27/25 02:59 12.5 mls/hr Q8HR MICKEY Administration Protocol Potassium Chloride 30 meq/ 1,015 mls @ 100 mls/hr 05/21/25 10:15 05/21/25 11:12 Sodium Chloride IV 05/21/25 20:23 100 mls/hr .Q10H9M MICKEY Administration Insulin Degludec 10 unit 05/22/25 09:00 Insulin Degludec 5 Unit/0.05 Ml (Per 5 Units) SC 06/21/25 08:59 QDAY MICKEY Insulin Human Lispro 0 unit 05/20/25 12:37 05/21/25 18:03 Insulin Lispro (Admelog) 1 Unit/0.01 Ml Unit SC 06/17/25 12:44 Not Given Q6HR [facility] Protocol Ondansetron HCl 4 mg 05/18/25 12:40 05/18/25 16:10 Ondansetron Inj 2 Mg/Ml Inj 2 Ml IVP 06/17/25 12:39 4 mg Q6H PRN Administration NAUSEA OR VOMITING Protocol Plan Ms. Mills is a 54-year-old woman with a history of hypertension, diabetes on insulin, HLD, 3 sections, and hernia repair who presented with nausea and diffuse abdominal pain found to have small bowel obstruction, likely 2/2 adhesions from prior abdominal surgeries, completed small bowel series but no bm nor gas to date, surgery consulted, s/p ex lap continues with ng tube on suction SBO s/p ex lap 05/19 2/2 intrabdominal adhesions from prior surgeries pt reports having had 3 c sections and a prior hernia repair, all risk factors for adhesions and subsequent SBO. CTAP with c/f early SBO KUB with contrast shows contrast dilated loops of bowel. Small bowel series: contrast noted in the colon PLAN: NPO NG tube on LIS IVF Pain: Dilaudid 1mg IV q4hr prn, IV APAP q6hr scheduled Nausea: Zofran PRN ABx: Zosyn 3.375 q8hr #prerenal LISA-resolved Cr: 1.5 from 1.1 Ddx: Consider pre vs intra vs post renal etiologies suspect prerenal due to blood loss during surgery and npo. Dx - Daily CMP Tx - Avoid nephrotoxic medications - Increased maintenance fluids to 150/hr 1/2 NS Mild hypernatremia mild hyperchloremia -half NS with potassium at 100cc/hr HTN Hx anginal pain s/p cardiac cath 11/03/[address] Arvizu with no occlusions noted PLAN BP well controlled while inpatient SBP 120s hold home HCTZ 25 mg qam hold home ASA 81 IDT2DM home regimen: degludec 32 U qhs, jardiance 25 mg qd , a1c 9.9 PLAN NPO ISS q6hr step 2 Blood glucose checks q6hr degludec 15 units decreased to 10 HLD PLAN hold home rosouvostatin 5 mg iso NPO Psoriatic arthritis home tremfya sub q 100 mg q8 weeks Dispo: npo, s/p ex lap, ng tube remains on LIS, no bm to date Diet: NPO Bowel Reg: gastrogaffin series, no bm no gas yet VTE ppx: lovenox 40 GI ppx: not indicated Code status: FULL Patient's plan of care discussed with Dr. Kanwal Raman PGY2 Attending Provider Attestation/Addendum Celine, Sabrina Schofield DO, attest that I was physically present for the [place] portions of the service and evaluated the patient with the resident and I reviewed and discussed the case with the resident and agree with the resident's findings and plans of care as documented above Patient seen and evaluated this AM. She is complaining of throat discomfort due to NG tube. Benzocaine spray ordered. BG has been low as patient remains only on ice chips. Will decrease long acting insulin to 10 u daily. Hiwot noted to be intact over midline abdominal incision. Patient reports no pain from abdomen, but mainly from NG tube. Patient has been able to pass gas, but no BM. Will f/u with surgery recommendations regarding diet. Encourage IS. Continue to montior BG closely. Will add potassium to IV fluids. Hypernatremia and renal function improved.
[2025-05-22] VITALS (7 sets, daily range): BP systolic 105–125; BP diastolic 61–73; PULSE 74–99; RESP 15–92; TEMP 36.1–36.6; O2SAT 93–96
[2025-05-22] MEDS: PIPER/TAZO 3.375 GM PREMIX 3.375 GM/50 ML BAG IV ×3 (05:52→21:39)
[2025-05-22 06:23] LABS: Basophils # (Auto) 0.0 Thou/mm3 (0.0-0.2); Basophils % (Auto) 0 % (0-2.5); Eosinophils # (Auto) 0.5 Thou/mm3 (0.0-0.5); Eosinophils % (Auto) 4 % (0-10); Hematocrit 35.3 % (36.0-46.0); Hemoglobin 11.4 g/dL (12.0-16.0); Immature Granulocytes Auto 0.04 Thou/mm3 (0.00-0.00); Lymphocytes # (Auto) 2.5 Thou/mm3 (1.0-4.8); Lymphocytes % (Auto) 21 % (10-50); Mean Corpuscular HGB Conc 32.3 g/dl (31.0-37.0); Mean Corpuscular Hemoglobin 29.1 pg (25.0-35.0); Mean Corpuscular Volume 90 fL (80-100); Monocytes # (Auto) 1.5 Thou/mm3 (0.0-0.8); Monocytes % (Auto) 12 % (0-12); Neutrophils # (Auto) 7.5 Thou/mm3 (1.8-7.7); Neutrophils % (Auto) 63 % (37-80); Nucleated Red Blood Cell # 0.00 Thou/mm3 (0.00-0.00); Nucleated Red Blood Cell % 0 /100 WBC (0); Platelet Count 227 Thou/mm3 (140-440); RDW Standard Deviation 45.0 fL (36.4-46.3); Red Blood Count 3.92 Miln/mm3 (4.00-5.20); White Blood Count 12.0 Thou/mm3 (3.6-11.0)
[2025-05-22 06:42] LABS: Alanine Aminotransferase 11 U/L (10-49); Albumin, Serum 3.9 gm/dL (3.5-5.0); Albumin/Globulin Ratio 1.4 (1.2-2.2); Alkaline Phosphatase 55 U/L (46-116); Anion Gap 10 (7-16); Aspartate Amino Transferase 18 U/L (0-34); BUN/Creatinine Ratio 17 Ratio (12-20); Bilirubin,Total 0.5 mg/dL (0.3-1.2); Blood Urea Nitrogen 15 mg/dL (9-23); Calcium 8.9 mg/dL (8.3-10.6); Calcium (Corrected) 9.0 mg/dL (8.5-10.1); Carbon Dioxide 23.2 mMol/L (20.0-31.0); Chloride 107 mMol/L (98-107); Creatinine (Component) 0.9 mg/dL (0.6-1.3); Estimated Creatinine Clearance 79.7 mL/min (>60); Globulin 2.8 gm/dL (2.3-3.5); Glucose 70 mg/dL (74-106); Magnesium 2.2 mg/dL (1.6-2.6); Osmolality,Calculated 278 (275-295); Phosphorous 2.7 mg/dL (2.4-5.1); Potassium 3.5 mMol/L (3.4-5.1); Sodium 140 mMol/L (136-145); Total Protein 6.7 gm/dL (5.7-8.2); eGFR > 60 See Note
[2025-05-22] MEDS: ENOXAPARIN SOD INJ 40 MG/0.4 ML SYRINGE SC (08:25)
--- NOTE | 2025-05-22 11:01 | PC.NURSE ---
pt had a large bowel movement today 05/22 @ 1100
--- NOTE | 2025-05-22 15:00 | ESPR_ITS ---
Documentation for date of: 05/22/25 Subjective Subjective Interval history: Patient examined at bedside. No events overnight. States that her abdominal pain has resolved and sore throat feels better after the benzocaine spray from yesterday. Dr. Diaz removed NG tube and recommended to start her on clear liquid diet. Endorses flatulence however has not had bowel movement as of yet. Yesterday sugars were low due to n.p.o. status. Wean long-acting insulin from 10 to 15 units and continue to monitor blood sugar levels. LISA has resolved with creatinine 0.9. Vitals are stable. Advance diet per surgery recommendations and monitor BM. Encouraged IS use. Exam Vital Signs Temp Pulse Resp BP Pulse Ox O2 Del Method O2 Flow Rate 97.2 F 90 17 118/68 96 Room Air 2 05/22/25 12:00 05/22/25 12:00 05/22/25 12:00 05/22/25 12:00 05/22/25 12:00 05/22/25 12:00 05/22/25 08:00 Narrative Exam GENERAL: no acute distress, AAO x3,sitting on edge of bed HEENT: Head AT/ NC. Mucous membranes DRY . PERRL, no significant erythema in throat NECK: Supple, no lymphadenopathy, no carotid bruits. CARDIOVASCULAR: RRR. Normal S1/S2, No m/r/g. No pitting edema of bilateral LEs. RESPIRATORY: CTAB. No wheezing, rhonchi, crackles. GASTROINTESTINAL: Abdomen soft, obese, tender with light palpation around midline incision. no palpable masses. Bowel sounds more in LLQ, midline surgical incision with dressing in place. MUSCULOSKELETAL:? No cyanosis or edema, no visible joint swelling. NEUROLOGICAL: CN II-XII grossly intact. No focal deficits. Sensation intact, symmetric. PSYCHIATRIC: Awake and alert, not agitated, normal mood and affect. SKIN: No obvious rashes, no jaundice, normal turgor. Objective Labs 05/23/25 05:14 05/23/25 05:14 Labs: Laboratory Results - last 24 hr 05/22/25 05:53 WBC 12.0 H RBC 3.92 L Hgb 11.4 L Hct 35.3 L MCV 90 MCH 29.1 MCHC 32.3 RDW Std Deviation 45.0 Plt Count 227 Neut % (Auto) 63 Lymph % (Auto) 21 [place] % (Auto) 12 Eos % (Auto) 4 Baso % (Auto) 0 Neut # (Auto) 7.5 Lymph # (Auto) 2.5 [place] # (Auto) 1.5 H Eos # (Auto) 0.5 Baso # (Auto) 0.0 Immature Gran # (Auto) 0.04 H Absolute Nucleated RBC 0.00 Immature Gran % 0 Nucleated RBC % 0 Sodium 140 Potassium 3.5 Chloride 107 Carbon Dioxide 23.2 Anion Gap 10 BUN 15 Creatinine 0.9 Estim Creat Clear Calc 79.7 eGFR > 60 BUN/Creatinine Ratio 17 Glucose 70 L Calculated Osmolality 278 Calcium 8.9 Corrected Calcium 9.0 Phosphorus 2.7 Magnesium 2.2 Total Bilirubin 0.5 AST 18 ALT 11 Alkaline Phosphatase 55 Total Protein 6.7 Albumin 3.9 Globulin 2.8 Albumin/Globulin Ratio 1.4 ABG Interpretation ABG results: 05/18/25 10:33 VBG pH 7.42 VBG pCO2 42 VBG pO2 41 VBG Base Excess 2 Quality Measures Quality Measures VTE prophylaxis Assessment & Plan Assessment Current Active Medications: Generic Name Dose Route Start Last Admin Trade Name [place] PRN Reason Stop Dose Admin Acetaminophen 650 mg 05/21/25 13:49 Acetaminophen 325 Mg Tablet PO 06/18/25 21:37 Q6HR PRN FEVER>101.5 Benzocaine 0 dose 05/21/25 12:47 05/21/25 14:58 Benzocaine 20% (Hurricaine) [place] 1 Dose TOP 06/20/25 12:46 1 dose QID PRN Administration SORE THROAT Dextrose 25 ml 05/18/25 12:40 05/21/25 23:14 Dextrose 50%-Water Inj 50 Ml Syringe IV 06/17/25 12:39 25 ml Q15MIN PRN Administration BG 50-70 responsive npo pt Dextrose 50 ml 05/18/25 12:40 Dextrose 50%-Water Inj 50 Ml Syringe IV 06/17/25 12:39 Q15MIN PRN BG <50 OR BG <70 & pt unresponsive Enoxaparin Sodium 40 mg 05/19/25 09:00 05/22/25 08:25 Enoxaparin Sod Inj 40 Mg/0.4 Ml Syringe SC 06/02/25 08:59 40 mg QDAY MICKEY Administration Glucagon 1 mg 05/18/25 12:40 Glucagon Inj 1 Mg Vial IM Q15MIN PRN BG <70, and no IV access Hydromorphone HCl 1 mg 05/20/25 12:36 05/21/25 22:25 Hydromorphone Inj 2 Mg/Ml Vial IVP 05/25/25 12:35 1 mg Q4HR PRN Administration PAIN Piperacillin/Tazobactam/Dextrose 3.375 gm in 50 mls @ 12.5 mls/hr 05/20/25 03:00 05/22/25 14:26 Zosyn IV 05/27/25 02:59 12.5 mls/hr Q8HR MICKEY Administration Protocol Insulin Degludec 10 unit 05/22/25 09:00 05/22/25 08:23 Insulin Degludec 5 Unit/0.05 Ml (Per 5 Units) SC 06/21/25 08:59 Not Given QDAY [facility] Insulin Human Lispro 0 unit 05/20/25 12:37 05/22/25 12:28 Insulin Lispro (Admelog) 1 Unit/0.01 Ml Unit SC 06/17/25 12:44 Not Given Q6HR [facility] Protocol Ondansetron HCl 4 mg 05/18/25 12:40 05/18/25 16:10 Ondansetron Inj 2 Mg/Ml Inj 2 Ml IVP 06/17/25 12:39 4 mg Q6H PRN Administration NAUSEA OR VOMITING Protocol Plan Ms. Mills is a 54-year-old woman with a history of hypertension, diabetes on insulin, HLD, 3 sections, and hernia repair who presented with nausea and diffuse abdominal pain found to have small bowel obstruction, likely 2/2 adhesions from prior abdominal surgeries, completed small bowel series but no bm nor gas to date, surgery consulted, s/p ex lap continues with ng tube on suction SBO s/p ex lap 05/19 2/2 intrabdominal adhesions from prior surgeries pt reports having had 3 c sections and a prior hernia repair, all risk factors for adhesions and subsequent SBO. CTAP with c/f early SBO KUB with contrast shows contrast dilated loops of bowel. Small bowel series: contrast noted in the colon PLAN: -dc NG tube per surgery -start CLD diet -surgery to advance as needed -IVF -Pain: Dilaudid 1mg IV q4hr prn, IV APAP q6hr scheduled -Nausea: Zofran PRN -ABx: Zosyn 3.375 q8hr #prerenal LISA-resolved Cr: 1.5 from 1.1 Ddx: Consider pre vs intra vs post renal etiologies suspect prerenal due to blood loss during surgery and npo. Dx - Daily CMP Tx - Avoid nephrotoxic medications Mild hypernatremia-resolved mild hyperchloremia -resolved HTN Hx anginal pain s/p cardiac cath 11/03/[address] Arvizu with no occlusions noted PLAN BP well controlled while inpatient SBP 120s hold home HCTZ 25 mg qam hold home ASA 81 IDT2DM home regimen: degludec 32 U qhs, jardiance 25 mg qd , a1c 9.9 PLAN NPO ISS q6hr step 2 Blood glucose checks q6hr degludec 15 units decreased to 10 HLD PLAN hold home rosouvostatin 5 mg iso NPO Psoriatic arthritis home tremfya sub q 100 mg q8 weeks Dispo: mesurg, SBO resolved s/p lap of adhesions, waiting for BM Diet: CLD VTE ppx: lovenox 40 GI ppx: not indicated Code status: FULL Patient's plan of care discussed with Dr. Kanwal Raman PGY2 Attending Provider Attestation/Addendum I, Sabrina Schofield, , attest that I was physically present for the [place] portions of the service and evaluated the patient with the resident and I reviewed and discussed the case with the resident and agree with the resident's findings and plans of care as documented above Patient seen and evaluated this AM. She states she is feeling well and would like some juice. BG improved with decrease in insulin. Patient denies feeling lightheaded or diaphoretic from hypoglycemia. Case discussed with surgeon over the phone. OK to start CLD and advance as tolerated. NG tube was removed overnight, patient denies any nausea or vomiting.
--- NOTE | 2025-05-22 15:04 | PC.SS ---
Rounding note: advance diet, pending bowel movement.
[2025-05-22] MEDS: SIMETHICONE 80 MG CHEW PO (20:41)
[2025-05-22] MEDS: ONDANSETRON INJ 2 MG/ML INJ 2 ML 4 MG IVP (21:48)
[2025-05-23] VITALS (9 sets, daily range): BP systolic 102–137; BP diastolic 56–75; PULSE 71–85; RESP 16–95; TEMP 36.3–36.8; O2SAT 91–95
[2025-05-23] MEDS: PIPER/TAZO 3.375 GM PREMIX 3.375 GM/50 ML BAG IV ×3 (05:09→21:42)
[2025-05-23 05:45] LABS: Basophils # (Auto) 0.0 Thou/mm3 (0.0-0.2); Basophils % (Auto) 0 % (0-2.5); Eosinophils # (Auto) 0.3 Thou/mm3 (0.0-0.5); Eosinophils % (Auto) 2 % (0-10); Hematocrit 31.8 % (36.0-46.0); Hemoglobin 10.3 g/dL (12.0-16.0); Immature Granulocytes Auto 0.07 Thou/mm3 (0.00-0.00); Lymphocytes # (Auto) 2.5 Thou/mm3 (1.0-4.8); Lymphocytes % (Auto) 21 % (10-50); Mean Corpuscular HGB Conc 32.4 g/dl (31.0-37.0); Mean Corpuscular Hemoglobin 28.3 pg (25.0-35.0); Mean Corpuscular Volume 87 fL (80-100); Monocytes # (Auto) 1.5 Thou/mm3 (0.0-0.8); Monocytes % (Auto) 12 % (0-12); Neutrophils # (Auto) 7.6 Thou/mm3 (1.8-7.7); Neutrophils % (Auto) 64 % (37-80); Nucleated Red Blood Cell # 0.00 Thou/mm3 (0.00-0.00); Nucleated Red Blood Cell % 0 /100 WBC (0); Platelet Count 210 Thou/mm3 (140-440); RDW Standard Deviation 42.1 fL (36.4-46.3); Red Blood Count 3.64 Miln/mm3 (4.00-5.20); White Blood Count 11.9 Thou/mm3 (3.6-11.0)
[2025-05-23 06:35] LABS: Alanine Aminotransferase 7 U/L (10-49); Albumin, Serum 3.2 gm/dL (3.5-5.0); Albumin/Globulin Ratio 1.4 (1.2-2.2); Alkaline Phosphatase 49 U/L (46-116); Anion Gap 6 (7-16); Aspartate Amino Transferase 11 U/L (0-34); BUN/Creatinine Ratio 10 Ratio (12-20); Bilirubin,Total 0.4 mg/dL (0.3-1.2); Blood Urea Nitrogen 8 mg/dL (9-23); Calcium 8.4 mg/dL (8.3-10.6); Calcium (Corrected) 9.0 mg/dL (8.5-10.1); Carbon Dioxide 26.3 mMol/L (20.0-31.0); Chloride 108 mMol/L (98-107); Creatinine (Component) 0.8 mg/dL (0.6-1.3); Estimated Creatinine Clearance 89.7 mL/min (>60); Globulin 2.3 gm/dL (2.3-3.5); Glucose 143 mg/dL (74-106); Magnesium 2.0 mg/dL (1.6-2.6); Osmolality,Calculated 279 (275-295); Phosphorous 2.4 mg/dL (2.4-5.1); Potassium 3.2 mMol/L (3.4-5.1); Sodium 140 mMol/L (136-145); Total Protein 5.5 gm/dL (5.7-8.2); eGFR > 60 See Note
[2025-05-23] MEDS: ENOXAPARIN SOD INJ 40 MG/0.4 ML SYRINGE SC (08:11)
[2025-05-23] MEDS: INSULIN DEGLUDEC 5 UNIT/0.05 ML (PER 5 UNITS) 10 UNIT SC (08:11)
--- NOTE | 2025-05-23 08:14 | ESPR_ITS ---
<Statement entered by Kenya Woody MD - 05/24/25 14:44> Patient seen and examined at bedside. Patient states that her abdominal pain is a lot better, status post bowel movements. Will encourage patient to use incentive [place] and ambulate more. Will advance diet as tolerated, currently on full liquid for lunch. Per general surgery, patient can be followed outpatient after discharge possibly tomorrow for melba removal. Patient will continue to be on pain meds needed. I discussed with and supervised the internal control consultant physician who took care of this patient. I personally saw and examined the patient and discussed the assessment and plan with the entire medicine team, including my attending Dr. Schofield, I agree with most of the assessment and plan as documented below Kenya Woody M.D. PGY-3 <Statement entered by Lore Raman MD - 05/23/25 16:12> Note reviewed, I agree with most of its contents and agree with the patient's care as documented by Dr. Rodriguez. The patient's management plan was discussed with my attending physician Dr. Schofield. Lore Raman, PGY-2 Documentation for date of: 05/23/25 Subjective Subjective Interval history: 05/23/2025: Patient seen and examined at bedside. She reports feeling better since having BMs. pt encouraged to use incentive spirometer and ambulate. Diet was advanced from clears to full for lunch and mechanical altered for dinner. plan for discharge tomorrow. Exam Vital Signs Temp Pulse Resp BP Pulse Ox O2 Del Method O2 Flow Rate 97.3 F 83 18 102/56 L 93 L Nasal Cannula 2 05/23/25 04:00 05/23/25 04:00 05/23/25 04:00 05/23/25 04:00 05/23/25 04:00 05/23/25 04:00 05/23/25 04:00 Narrative Exam GENERAL: no acute distress, AAO x3. HEENT: Head AT/ NC. Mucous membranes DRY . PERRL, NECK: Supple, no lymphadenopathy, no carotid bruits. CARDIOVASCULAR: RRR. Normal S1/S2, No m/r/g. No pitting edema of bilateral LEs. RESPIRATORY: CTAB. No wheezing, rhonchi, crackles. GASTROINTESTINAL: Abdomen soft, obese, non tender around midline incision. no palpable masses.Bowel sounds present , midline surgical incision with melba in place, no dehissence or drainage MUSCULOSKELETAL:? No cyanosis or edema, no visible joint swelling. NEUROLOGICAL: CN II-XII grossly intact. No focal deficits. Sensation intact, symmetric. PSYCHIATRIC: Awake and alert, not agitated, normal mood and affect. SKIN: No obvious rashes, no jaundice, normal turgor. Objective Labs 05/24/25 04:50 05/24/25 04:50 Labs: Laboratory Results - last 24 hr 05/23/25 05:14 WBC 11.9 H RBC 3.64 L Hgb 10.3 L Hct 31.8 L MCV 87 MCH 28.3 MCHC 32.4 RDW Std Deviation 42.1 Plt Count 210 Neut % (Auto) 64 Lymph % (Auto) 21 [place] % (Auto) 12 Eos % (Auto) 2 Baso % (Auto) 0 Neut # (Auto) 7.6 Lymph # (Auto) 2.5 [place] # (Auto) 1.5 H Eos # (Auto) 0.3 Baso # (Auto) 0.0 Immature Gran # (Auto) 0.07 H Absolute Nucleated RBC 0.00 Immature Gran % 1 H Nucleated RBC % 0 Sodium 140 Potassium 3.2 L Chloride 108 H Carbon Dioxide 26.3 Anion Gap 6 L BUN 8 L Creatinine 0.8 Estim Creat Clear Calc 89.7 eGFR > 60 BUN/Creatinine Ratio 10 L Glucose 143 H D Calculated Osmolality 279 Calcium 8.4 Corrected Calcium 9.0 Phosphorus 2.4 Magnesium 2.0 Total Bilirubin 0.4 AST 11 ALT 7 L Alkaline Phosphatase 49 Total Protein 5.5 L Albumin 3.2 L D Globulin 2.3 Albumin/Globulin Ratio 1.4 ABG Interpretation ABG results: 05/18/25 10:33 VBG pH 7.42 VBG pCO2 42 VBG pO2 41 VBG Base Excess 2 Quality Measures Quality Measures VTE prophylaxis Assessment & Plan Assessment Current Active Medications: Generic Name Dose Route Start Last Admin Trade Name Freq PRN Reason Stop Dose Admin Acetaminophen 650 mg 05/21/25 13:49 Acetaminophen 325 Mg Tablet PO 06/18/25 21:37 Q6HR PRN FEVER>101.5 Benzocaine 0 dose 05/21/25 12:47 05/21/25 14:58 Benzocaine 20% (Hurricaine) [place] 1 Dose TOP 06/20/25 12:46 1 dose QID PRN Administration SORE THROAT Dextrose 25 ml 05/18/25 12:40 05/21/25 23:14 Dextrose 50%-Water Inj 50 Ml Syringe IV 06/17/25 12:39 25 ml Q15MIN PRN Administration BG 50-70 responsive npo pt Dextrose 50 ml 05/18/25 12:40 Dextrose 50%-Water Inj 50 Ml Syringe IV 06/17/25 12:39 Q15MIN PRN BG <50 OR BG <70 & pt unresponsive Enoxaparin Sodium 40 mg 05/19/25 09:00 05/23/25 08:11 Enoxaparin Sod Inj 40 Mg/0.4 Ml Syringe SC 06/02/25 08:59 40 mg QDAY MICKEY Administration Glucagon 1 mg 05/18/25 12:40 Glucagon Inj 1 Mg Vial IM Q15MIN PRN BG <70, and no IV access Hydromorphone HCl 1 mg 05/20/25 12:36 05/21/25 22:25 Hydromorphone Inj 2 Mg/Ml Vial IVP 05/25/25 12:35 1 mg Q4HR PRN Administration PAIN Piperacillin/Tazobactam/Dextrose 3.375 gm in 50 mls @ 12.5 mls/hr 05/20/25 03:00 05/23/25 05:09 Zosyn IV 05/27/25 02:59 12.5 mls/hr Q8HR MICKEY Administration Protocol Insulin Degludec 10 unit 05/22/25 09:00 05/23/25 08:11 Insulin Degludec 5 Unit/0.05 Ml (Per 5 Units) SC 06/21/25 08:59 10 unit QDAY MICKEY Administration Insulin Human Lispro 0 unit 05/22/25 17:30 05/23/25 08:11 Insulin Lispro (Admelog) 1 Unit/0.01 Ml Unit SC 06/21/25 17:29 Not Given ACHS [facility] Protocol Ondansetron HCl 4 mg 05/18/25 12:40 05/22/25 21:48 Ondansetron Inj 2 Mg/Ml Inj 2 Ml IVP 06/17/25 12:39 4 mg Q6H PRN Administration NAUSEA OR VOMITING Protocol Plan Ms. Mills is a 54-year-old woman with a history of hypertension, diabetes on insulin, HLD, 3 sections, and hernia repair who presented with nausea and diffuse abdominal pain found to have small bowel obstruction, likely 2/2 adhesions from prior abdominal surgeries, completed small bowel series but no bm nor gas to date, surgery consulted, s/p ex lap, now passing gas and having bms, will advance diet as tolerated. SBO s/p ex lap 05/19- resolved 2/2 intrabdominal adhesions from prior surgeries pt reports having had 3 c sections and a prior hernia repair, all risk factors for adhesions and subsequent SBO. CTAP with c/f early SBO KUB with contrast shows contrast dilated loops of bowel. Small bowel series: contrast noted in the colon pt continues to have BMs and passing gas. PLAN: -advance diet as tolerated: Full liquid -IVF -Pain: Dilaudid 1mg IV q4hr prn, IV APAP q6hr scheduled -Nausea: Zofran PRN -ABx: Zosyn 3.375 q8hr -surgery follow up outpatient for melba removal #prerenal LISA-resolved Cr: 1.5 from 1.1 Ddx: Consider pre vs intra vs post renal etiologies suspect prerenal due to blood loss during surgery and npo. Dx - Daily CMP Tx - Avoid nephrotoxic medications Mild hypernatremia-resolved mild hyperchloremia -resolved HTN Hx anginal pain s/p cardiac cath 11/03/[address] Arvizu with no occlusions noted PLAN BP well controlled while inpatient SBP 120s hold home HCTZ 25 mg qam hold home ASA 81 IDT2DM home regimen: degludec 32 U qhs, jardiance 25 mg qd , a1c 9.9 PLAN ISS ACHS step 2 Blood glucose checks achs degludec 10 Units HLD PLAN home rosouvostatin 5 mg iso Psoriatic arthritis home tremfya sub q 100 mg q8 weeks Dispo: mesurg, SBO resolved s/p lap of adhesions, passing gas and having bm. likely d.c tomorrow, advancing diet as tolerated. Diet:full--> advance as tolerated VTE ppx: lovenox 40 GI ppx: not indicated Code status: FULL Plan discussed with Dr. Raman, Dr Woody, and Dr. Kanwal Rodriguez MD PGY1 Attending Provider Attestation/Addendum I, Sabrina Schofield DO, attest that I was physically present for the [place] portions of the service and evaluated the patient with the resident and I reviewed and discussed the case with the resident and agree with the resident's findings and plans of care as documented above Patient seen and evaluated this AM. She states she is feeling well and passing gas. She denies any pain. Patient has been tolerating full liquid diet, will advance to dysphagia 2. BG is well controlled. Anticipate DC in AM if patient is able to tolerate mechanical soft diet.
--- NOTE | 2025-05-23 10:04 | PD.SURPROG ---
Documentation for date of: 05/23/25 Subjective Subjective Brief History: History of present illness revealed that the patient developed abdominal pain last last night suddenly. It was crampy pain but no vomiting. She had a normal bowel movement yesterday. She has not had this problem before. The past surgery consisted of hernia repair and cholecystectomy and hysterectomy Narrative: Patient is having liquid bowel movements and passing flatus. She tolerated clear liquids Exam Vital Signs Temp Pulse Resp BP Pulse Ox O2 Del Method O2 Flow Rate 97.6 F 80 17 112/75 95 Room Air 2 05/23/25 08:00 05/23/25 08:00 05/23/25 08:00 05/23/25 08:00 05/23/25 08:00 05/23/25 08:00 05/23/25 04:00 Her vital signs are normal Routine Abdominal Exam Comments: Abdominal examination is negative Results Results: Laboratory Laboratory Narrative: Laboratory results show mild leukocytosis and hypokalemia with potassium around 3.2 Assessment & Plan Assessment Additional comments: Patient: Satisfactory postoperative course following enterolysis Plan Plan: We shall advance diet today and if tolerated she could be discharged tomorrow I will follow the patient in my office for staple removal PROCEDURES: Procedures Exploratory laparotomy and lysis of adhesion Incidental appendectomy
[2025-05-23] MEDS: INSULIN LISPRO (AdmeLOG) 1 UNIT/0.01 ML UNIT SC ×2 (12:11→21:52)
[2025-05-23] MEDS: ONDANSETRON INJ 2 MG/ML INJ 2 ML 4 MG IVP (21:37)
[2025-05-23] MEDS: ATORVASTATIN CALCIUM 20 MG TABLET PO (23:15)
[2025-05-24] VITALS: BP 94/54; PULSE 84; RESP 16; TEMP 36.4; O2SAT 90
[2025-05-24 04:00] VITALS: BP 91/54; PULSE 62; RESP 17; TEMP 36.4; O2SAT 92
[2025-05-24 05:31] LABS: Basophils # (Auto) 0.0 Thou/mm3 (0.0-0.2); Basophils % (Auto) 0 % (0-2.5); Eosinophils # (Auto) 0.3 Thou/mm3 (0.0-0.5); Eosinophils % (Auto) 3 % (0-10); Hematocrit 31.4 % (36.0-46.0); Hemoglobin 10.1 g/dL (12.0-16.0); Immature Granulocytes Auto 0.11 Thou/mm3 (0.00-0.00); Lymphocytes # (Auto) 2.4 Thou/mm3 (1.0-4.8); Lymphocytes % (Auto) 22 % (10-50); Mean Corpuscular HGB Conc 32.2 g/dl (31.0-37.0); Mean Corpuscular Hemoglobin 28.2 pg (25.0-35.0); Mean Corpuscular Volume 88 fL (80-100); Monocytes # (Auto) 1.2 Thou/mm3 (0.0-0.8); Monocytes % (Auto) 12 % (0-12); Neutrophils # (Auto) 6.7 Thou/mm3 (1.8-7.7); Neutrophils % (Auto) 62 % (37-80); Nucleated Red Blood Cell # 0.00 Thou/mm3 (0.00-0.00); Nucleated Red Blood Cell % 0 /100 WBC (0); Platelet Count 221 Thou/mm3 (140-440); RDW Standard Deviation 42.5 fL (36.4-46.3); Red Blood Count 3.58 Miln/mm3 (4.00-5.20); White Blood Count 10.7 Thou/mm3 (3.6-11.0)
[2025-05-24] MEDS: PIPER/TAZO 3.375 GM PREMIX 3.375 GM/50 ML BAG IV (05:32)
[2025-05-24 06:36] LABS: Alanine Aminotransferase 9 U/L (10-49); Albumin, Serum 3.2 gm/dL (3.5-5.0); Albumin/Globulin Ratio 1.5 (1.2-2.2); Alkaline Phosphatase 46 U/L (46-116); Anion Gap 9 (7-16); Aspartate Amino Transferase 12 U/L (0-34); BUN/Creatinine Ratio 9 Ratio (12-20); Bilirubin,Total 0.4 mg/dL (0.3-1.2); Blood Urea Nitrogen 7 mg/dL (9-23); Calcium 8.3 mg/dL (8.3-10.6); Calcium (Corrected) 8.9 mg/dL (8.5-10.1); Carbon Dioxide 27.6 mMol/L (20.0-31.0); Chloride 107 mMol/L (98-107); Creatinine (Component) 0.8 mg/dL (0.6-1.3); Estimated Creatinine Clearance 89.7 mL/min (>60); Globulin 2.1 gm/dL (2.3-3.5); Glucose 107 mg/dL (74-106); Magnesium 2.0 mg/dL (1.6-2.6); Osmolality,Calculated 284 (275-295); Phosphorous 2.6 mg/dL (2.4-5.1); Potassium 3.3 mMol/L (3.4-5.1); Sodium 144 mMol/L (136-145); Total Protein 5.3 gm/dL (5.7-8.2); eGFR > 60 See Note
[2025-05-24 07:39] VITALS: PULSE 68; RESP 18; RESP 92
--- NOTE | 2025-05-24 07:46 | ESDS_ITS ---
<Statement entered by Sabrina Schofield DO - 05/25/25 08:42> I, Sabrina Schofield DO, attest that I was physically present for the [place] portions of the service and evaluated the patient with the resident and I reviewed and discussed the case with the resident and agree with the resident's findings and plans of care as documented above <Statement entered by Lore Raman MD - 05/24/25 16:34> Note reviewed, I agree with most of its contents and agree with the patient's care as documented by Dr. Rodriguez. The patient's management plan was discussed with my attending physician Dr. Schofield. Lore Raman, PGY-2 <Statement entered by Kenya Woody MD - 05/24/25 15:59> I discussed with and supervised the transportation logistics internship physician who took care of this patient. I personally saw and examined the patient and discussed the assessment and plan with the entire medicine team, including my attending Dr. Schofield, I agree with most of the assessment and plan as documented below Kenya Woody M.D. PGY-3 Planned Discharge Date 05/24/25 DS: Providers Provider Date of admission: 05/18/25 10:19 Primary care physician: Angelic Kim PA-C Admitting Provider: Tegan Zepeda MD Attending Provider on Admission: Sabrina Schofield DO Attending Provider on DC: Sabrina Schofield DO Discharging Provider: Sabrina Schofield DO DS: Diagnosis Problem List Completed Was Problem List Reviewed/Reconciled?: Yes Hospital Course Hospital Course Hospital course: Hospital Course Ms. Mills is a 54-year-old woman with a history of hypertension, diabetes on insulin, HLD, 3 sections, and hernia repair who presented with nausea and diffuse abdominal pain found to have small bowel obstruction, likely 2/2 adhesions from prior abdominal surgeries. She was admitted for managment of SBO, NG tube was placed and she was npo. she started on gastrogaffin small bowel series without resolution of her obstructive symptoms. Surgery was consulted who took her to surgery for ex lap where lysis of adhesions were performed. Her diet was advanced slowly and she was able to tolerate and had resolution of obstructive symptoms, and endorsed passing gas and BMs. Patient stable and m edically cleared for discharge. Discharge instructions Stop taking hydrochlorothiazide and propranolol as your BP was well controlled. Decrease your long acting insulin from 32 units to 15 units. If you notice your fasting blood glucose is above 150 in the morning, please increase your long-acting by 1 unit. Your goal fasting blood glucose is 70-130. Start using your Freestyle ezra to monitor your blood sugars. Light activity is encouraged. Avoid heavy lifting. Attempt light frequent meals. Avoid foods such as raw vegetables, nuts, fried or fatty food. Monitor for worsening symptoms such as recurring abdominal pain, no bowel movements for 2-3 days, or no gas. Return to ED if symptoms worsen. Follow up with surgery in 10 days to remove stitches. Diagnoses SBO s/p ex lap 05/19- resolved 2/2 intrabdominal adhesions from prior surgeries prerenal LISA-resolved Mild hypernatremia-resolved mild hyperchloremia -resolved HTN Hx anginal pain IDT2DM HLD Psoriatic arthritis Plan discussed with Dr. Raman, Dr Woody, and Dr. Kanwal Rodriguez MD PGY1 Status at Discharge Overall status at discharge: patient is progressing back to baseline Time Spent with Patient Time attestation: Total time spent providing and/or coordinating discharge services: Time spent: Greater than 30 minutes Exam Vital Signs Temp Pulse Resp BP Pulse Ox O2 Del Method O2 Flow Rate 97.6 F 68 18 91/54 L 92 L Room Air 2 05/24/25 04:00 05/24/25 07:39 05/24/25 07:39 05/24/25 04:00 05/24/25 04:00 05/24/25 04:00 05/23/25 04:00 Narrative Exam GENERAL: no acute distress, AAO x3. HEENT: Head AT/ NC. Mucous membranes DRY . PERRL, NECK: Supple, no lymphadenopathy, no carotid bruits. CARDIOVASCULAR: RRR. Normal S1/S2, No m/r/g. No pitting edema of bilateral LEs. RESPIRATORY: CTAB. No wheezing, rhonchi, crackles. GASTROINTESTINAL: Abdomen soft, obese, non tender around midline incision. no palpable masses.Bowel sounds present , midline surgical incision with melba in place, no dehissence or drainage MUSCULOSKELETAL:? No cyanosis or edema, no visible joint swelling. NEUROLOGICAL: CN II-XII grossly intact. No focal deficits. Sensation intact, symmetric. PSYCHIATRIC: Awake and alert, not agitated, normal mood and affect. SKIN: No obvious rashes, no jaundice, normal turgor. Discharge Plan Plan Patient Disposition: HOME (Self Care) Patient condition on transfer: Stable Prescriptions/Referrals Prescriptions/Med Rec: New (DME) FreeStyle Ezra 3 Plus Sensor Device See Rx Instructions .Route Qty: 1 2RF Rx Instructions: As directed (DME) FreeStyle Ezra 3 [place] Misc See Rx Instructions .Route Qty: 1 2RF Rx Instructions: As directed hydrocodone-acetaminophen 5-325 mg tablet 1 tab PO Q8H MDD 3 tabs PRN (Reason: pain (scale score 7-10)) Qty: 14 0RF Continued aspirin 81 mg Tablet,Delayed Release (Dr/Ec) 81 mg PO QDAY rosuvastatin [Crestor] 5 mg tablet 5 mg PO QDAY Jardiance 25 mg tablet 25 mg PO QDAY Tremfya Pen 100 mg/mL pen injector 100 mg subcut .[id number] Changed insulin degludec [Tresiba FlexTouch U-200] 200 unit/mL (3 mL) insulin pen 15 unit SUBCUT QPM 30 Days Qty: 2.25 0RF Patient Comments: INJECT 30 UNITS SUBCUTANEOUSLY EVERY DAY Discontinued Propranolol Hcl * (INDERAL *) 80 MG tablet 80 mg PO QDAY Qty: 0 hydrochlorothiazide 25 mg tablet 25 mg PO QAM Referrals: Angelic Kim PA-C [Primary Care Provider] Daren Louis MD [Physician, General Surgery] Patient/Caregiver Discharge Instructions Other Discharge Activity Instructions:: Stop taking hydrochlorothiazide and propranolol as your BP was well controlled. Decrease your long acting insulin from 32 units to 15 units. If you notice your fasting blood glucose is above 150 in the morning, please increase your long-acting by 1 unit. Your goal fasting blood glucose is 70-130. Start using your Freestyle ezra to monitor your blood sugars. Light activity is encouraged. Avoid heavy lifting. Attempt light frequent meals. Avoid foods such as raw vegetables, nuts, fried or fatty food. Monitor for worsening symptoms such as recurring abdominal pain, no bowel movements for 2-3 days, or no gas. Return to ED if symptoms worsen. Follow up with surgery in 10 days to remove stitches. Education Materials: Preventing Surgical Site Infections Print Language: Palestinian Stand Alone Forms: [facility]air Award Info., Patient Portal Info Letter Discharge Order Discharge Orders: Discharge (Routine); Ordered 05/24/25 Ordered By: Kenya Woody Quality Discharge Quality Measures VTE prophylaxis
[2025-05-24 08:00] VITALS: BP 106/61; PULSE 68; RESP 18; TEMP 36.2; O2SAT 93
[2025-05-24] MEDS: ENOXAPARIN SOD INJ 40 MG/0.4 ML SYRINGE SC (08:51)
[2025-05-24] MEDS: DOCUSATE SOD 100 MG CAPSULE PO (08:51)
[2025-05-24] MEDS: INSULIN DEGLUDEC 5 UNIT/0.05 ML (PER 5 UNITS) 10 UNIT SC (08:51)
[2025-05-24] MEDS: ATORVASTATIN CALCIUM 20 MG TABLET PO (08:51)
[2025-05-24 12:00] VITALS: BP 114/66; PULSE 63; RESP 18; TEMP 36.4; O2SAT 93
== END 2025-05-24 14:00 | disposition home or self-care (01) | DRG 336 ==
LOC: SERX 06:53 → SERHOLD 11:07 → S3SX 12:43
PROVIDERS: Physician Assistant; Surgery; Admitting Provider Internal Medicine; Emergency Provider Emergency Medicine; PCP Physician Assistant Medical; Visit Provider Internal Medicine
PROC: (CPT 49000; principal; 2025-05-19 18:30)
DX: K56.52 Intestinal adhesions [bands] with complete obstruction (principal); E87.0 Hyperosmolality and hypernatremia; N17.9 Acute kidney failure, unspecified; I10 Essential (primary) hypertension; E78.5 Hyperlipidemia, unspecified; E11.65 Type 2 diabetes mellitus with hyperglycemia; L40.50 Arthropathic psoriasis, unspecified; E66.9 Obesity, unspecified; Z68.29 Body mass index [BMI] 29.0-29.9, adult; E87.8 Other disorders of electrolyte and fluid balance, not elsewhere classified; E11.649 Type 2 diabetes mellitus with hypoglycemia without coma; Z79.4 Long term (current) use of insulin; Z90.49 Acquired absence of other specified parts of digestive tract; Z90.710 Acquired absence of both cervix and uterus; Z79.82 Long term (current) use of aspirin; Z79.84 Long term (current) use of oral hypoglycemic drugs
CPT/HCPCS: 36415; 74018; 74177; 74250; 80053; 81001; 82150; 82803; 83036; 83605; 83735; 84100; 85025; 85610; 87040; 96361; 96365; 96375; 96376; 99284; A4649; J0131; J1171; J1650; J1815; J2250; J2270; J2405; J2543; J2704; J2765; J3010; J3475; J3480; J3490; J7030; J7120; Q9963; Q9967; A9270

== ENCOUNTER → 2025-07-08 | Outpatient (CLI) | payer BC, SELFPAY ==
--- NOTE | 2025-07-08 10:30 | XR_ITS ---
Examination: Screening digital mammography, bilateral Computer aided detection 3-D breast Tomosynthesis, bilateral Date and time of exam: July 08, 2025, 1027 hours, compared to mammograms dating to December 29, 2012 Indication: Screening Technique: Nonmagnified MLO, CC views of the breasts to been obtained, reconstructed from 3-D Tomosynthesis images. R2 computer aided detection program utilized for evaluation of suspicious masses and/or abnormal calcifications. 3-D Tomosynthesis images obtained. Findings: The breasts are heterogeneously dense, which may obscure small masses Benign calcifications No interval suspicious masses Impression: BI-RADS category II: Benign Findings. Recommend 1 year follow-up mammogram.
== END | disposition home or self-care (01) ==
LOC: CDIM 10:21
PROVIDERS: Referring Provider Physician Assistant Medical; Visit Provider Physician Assistant Medical
DX: Z12.31 Encounter for screening mammogram for malignant neoplasm of breast (principal); R92.323 Mammographic fibroglandular density, bilateral breasts; R92.1 Mammographic calcification found on diagnostic imaging of breast
CPT/HCPCS: 77063; 77067